=== PATIENT | female | born 1970 | race Caucasian/White ===

== ENCOUNTER → 2017-03-31 | Outpatient (REF) | payer BC ==
[~2017-03-31] MED LIST: DIBU0.5O TOP; NAPR250T2 PO; PERC5TAB6 PO; ZOLO50TA PO
[2017-03-31 17:59] LABS: ESTRADIOL 176.3 PG/ML; FOLLICLE STIMULATING HORMONE 7.4 mIU/mL; LUTEINIZING HORMONE 10.2 mIU/mL; PROGESTERONE 0.2 NG/ML
[2017-03-31 18:03] LABS: MEAN CORPUSCULAR HEMOGLOBIN 31.4 pg (27.0-33.0); MEAN CORPUSCULAR HGB CONC 33.7 g/dl (32.0-36.5); RED CELL DISTRIBUTION WIDTH 12.8 % (11.5-14.5); WHITE BLOOD COUNT 6.7 K/mm3 (4.0-10.0)
== END ==
LOC: M SFHCCLAY 10:35
PROVIDERS: ATTEND Family Medicine
DX: N92.1 Excessive and frequent menstruation with irregular cycle (principal)

== ENCOUNTER → 2017-09-29 | Outpatient (CLI) | payer BC ==
[~2017-09-29] MED LIST changes: -NAPR250T2 PO; +NAPR250T4 PO; +PERC5TAB12 PO; -PERC5TAB6 PO
[2017-09-29 15:53] LABS: BASO # 0.1 10^3/uL (0.0-0.2); BASO % 0.8 % (0.0-1.0); EOS # 0.1 10^3/uL (0.0-0.50); EOS % 1.1 % (0.0-3.0); IMMATURE GRANULOCYTE % 0.2 % (0-0); LYMPH # 2.8 10^3/uL (1.5-4.5); LYMPH % 30.1 % (24.0-44.0); MEAN CORPUSCULAR HEMOGLOBIN 30.8 pg (27.0-33.0); MEAN CORPUSCULAR HGB CONC 34.3 g/dl (32.0-36.5); MEAN CORPUSCULAR VOLUME 90.1 fl (80.0-96.0); MONO # 0.6 10^3/uL (0.0-0.8); MONO % 6.2 % (0.0-5.0); NEUTROPHILS # 5.7 10^3/uL (1.8-7.7); NEUTROPHILS % 61.6 % (36.0-66.0); PLATELET COUNT, AUTOMATED 394 10^3/uL (150-450); RED CELL DISTRIBUTION WIDTH 12.8 % (11.5-14.5); WHITE BLOOD COUNT 9.3 10^3/uL (4.0-10.0)
[2017-09-29 16:05] LABS: URIC ACID 2.3 MG/DL (2.6-6.0)
[2017-09-29 16:31] LABS: ERYTHROCYTE SEDIMENTATION RATE 8 mm/hr (0-20)
[2017-10-02 00:06] LABS: Lyme Disease IgG/IgM Antibodie <0.91 ISR (0.00-0.90); Lyme Disease IgM Ab Quantitati <0.80 index (0.00-0.79)
== END ==
LOC: M LABDRAW1 14:19
PROVIDERS: ATTEND Physician Assistant Surgical
DX: M79.645 Pain in left finger(s) (principal)

== ENCOUNTER 2017-12-23 06:53 | Day surgery (SDC) | payer BC ==
[2017-12-23] MEDS ORDERED: LIDOCAINE 1% MDV 20ML VIAL SQ (07:00)
[2017-12-23] MEDS: LR 1,000 ML IV (07:29)
[2017-12-23] MEDS ORDERED: ROCURONIUM BROMIDE 50 MG/5 ML VIAL As Ordered (08:06)
[2017-12-23] MEDS ORDERED: LIDOCAINE 2% INJ 100 MG/5 ML SDV (FOR ANES.) As Ordered (08:06)
[2017-12-23] MEDS ORDERED: dexameTHASONE 4 MG/ML 1ML VIAL (J1100) As Ordered (08:06)
[2017-12-23] MEDS ORDERED: ONDANSETRON 4MG/2ML VIAL (J2405) As Ordered (08:06)
[2017-12-23] MEDS ORDERED: PROPOFOL 200 MG/20 ML VIAL As Ordered ×2 (08:06→09:38)
[2017-12-23] MEDS ORDERED: fentaNYL 100 MCG/2 ML INJECTION (J3010) As Ordered ×2 (08:07→10:11)
[2017-12-23] MEDS ORDERED: MIDAZOLAM INJ 2 MG/2 ML VIAL (J2250) As Ordered (08:08)
[2017-12-23] MEDS ORDERED: ePHEDrine INJ 50 MG/ML VIAL As Ordered (09:22)
[2017-12-23] MEDS ORDERED: HYDROmorphone HCL 2 MG/ML 1ML VIAL (J1170) As Ordered (09:30)
[2017-12-23] MEDS: BUPIVACAINE HCL 0.5% 30 ML VIAL As Ordered (09:55)
[2017-12-23] MEDS: fentaNYL 100 MCG/2 ML INJECTION (J3010) IV ×4 (10:18→10:35)
[2017-12-23] MEDS ORDERED: LR 1,000 ML IV ×2 (10:30)
[2017-12-23] MEDS ORDERED: ONDANSETRON 4MG/2ML VIAL (J2405) IV (10:30)
[2017-12-23] MEDS ORDERED: traMADol 50 MG TAB PO (10:30)
[2017-12-23] MEDS: HYDROmorphone HCL 1 MG/ML SYRINGE (J1170) IV ×3 (10:41→10:51)
[2017-12-23] MEDS: PERCOCET 5MG/325MG TAB PO (11:00)
[2017-12-23] MEDS ORDERED: ACETAMINOPHEN 500 MG TAB PO (14:00)
== END 2017-12-23 12:00 | disposition home or self-care (01) ==
LOC: M SDC 06:53
DX: M20.21 Hallux rigidus, right foot (principal); F41.9 Anxiety disorder, unspecified; F17.210 Nicotine dependence, cigarettes, uncomplicated
CPT/HCPCS: 28291

== ENCOUNTER → 2018-02-09 | Outpatient (REF) | payer BC ==
[2018-02-09 15:48] LABS: C REACTIVE PROTEIN QUANTITATIV < 0.30 MG/DL (0.00-0.30)
[2018-02-09 15:55] LABS: ERYTHROCYTE SEDIMENTATION RATE 9 mm/hr (0-30)
[2018-02-09 15:57] LABS: BASO % 0.4 % (0.0-1.0); EOS # 0.1 10^3/uL (0.0-0.50); EOS % 1.5 % (0.0-3.0); HEMATOCRIT 40.4 % (36.0-47.0); HEMOGLOBIN 13.5 g/dl (12.0-16.0); IMMATURE GRANULOCYTE % 0.3 % (0-3.0); LYMPH # 2.3 10^3/uL (1.5-4.5); LYMPH % 31.6 % (24.0-44.0); MEAN CORPUSCULAR HEMOGLOBIN 29.3 pg (27.0-33.0); MEAN CORPUSCULAR HGB CONC 33.4 g/dl (32.0-36.5); MEAN CORPUSCULAR VOLUME 87.8 fl (80.0-96.0); MONO # 0.5 10^3/uL (0.0-0.8); MONO % 6.8 % (0.0-5.0); NEUTROPHILS # 4.3 10^3/uL (1.8-7.7); NEUTROPHILS % 59.4 % (36.0-66.0); PLATELET COUNT, AUTOMATED 430 10^3/uL (150-450); RED CELL DISTRIBUTION WIDTH 12.9 % (11.5-14.5); WHITE BLOOD COUNT 7.2 10^3/uL (4.0-10.0)
== END ==
LOC: M LABDRAW1 14:16
DX: Z47.89 Encounter for other orthopedic aftercare (principal)
CPT/HCPCS: 86140

== ENCOUNTER → 2018-05-16 | Outpatient (REF) | payer BC ==
[2018-05-16 11:15] LABS: ALBUMIN 3.5 GM/DL (3.2-5.2); ALBUMIN/GLOBULIN RATIO 0.97 (1.00-1.93); ALKALINE PHOSPHATASE 66 U/L (45-117); ALT/SGPT 23 U/L (12-78); ANION GAP 8 MEQ/L (8-16); AST/SGOT 16 U/L (7-37); BILIRUBIN,TOTAL 0.2 MG/DL (0.2-1.0); BLOOD UREA NITROGEN 12 MG/DL (7-18); CALCIUM LEVEL 8.7 MG/DL (8.5-10.1); CARBON DIOXIDE LEVEL 26 MEQ/L (21-32); CHLORIDE LEVEL 108 MEQ/L (98-107); CHOLESTEROL LEVEL 210 MG/DL (<200); CHOLESTEROL RISK RATIO 3.962 (<5); GLOMERULAR FILTRATION RATE > 60.0 (>51); GLUCOSE, FASTING 100 MG/DL (70-100); HDL CHOLESTEROL 53 MG/DL (>40); LDL CHOLESTEROL 140.8 MG/DL (<100); NON-HDL-C 157 MG/DL; POTASSIUM SERUM 4.7 MEQ/L (3.5-5.1); SODIUM LEVEL 142 MEQ/L (136-145); TOTAL PROTEIN 7.1 GM/DL (6.4-8.2); TRIGLYCERIDES LEVEL 81 MG/DL (<150)
== END ==
LOC: M SFHCCLAY 07:59
DX: E78.2 Mixed hyperlipidemia (principal)

== ENCOUNTER → 2018-10-27 | Outpatient (REF) | payer BC | LOC: M SFHCCLAY 11:20 | PROVIDERS: ATTEND Family Medicine | DX: L81.4 Other melanin hyperpigmentation (principal) ==

== ENCOUNTER → 2019-02-08 | Outpatient (CLI) | payer BC ==
--- NOTE | 2019-02-08 16:11 | REP ---
Clinical: Nephrolithiasis. Technique: Two supine views of the abdomen and pelvis. Findings: Evaluation of the urinary tract system is limited due to overlying bowel gas. No obvious urinary tract calcifications are appreciated. Phleboliths noted in the pelvis. Bowel gas pattern is nonspecific. The skeletal structures demonstrate age-related changes. Impression: Limited evaluation of the urinary tract system. No obvious nephroureterolithiasis appreciated. Electronically Signed by Ryan Gomez MD 02/08/2019 04:02 P
[2019-02-08 19:16] LABS: HEMATOCRIT 38.3 % (36.0-47.0); HEMOGLOBIN 12.5 g/dl (12.0-15.5); MEAN CORPUSCULAR HEMOGLOBIN 29.3 pg (27.0-33.0); MEAN CORPUSCULAR HGB CONC 32.6 g/dl (32.0-36.5); MEAN CORPUSCULAR VOLUME 89.7 fl (80.0-96.0); PLATELET COUNT, AUTOMATED 362 10^3/uL (150-450); RED BLOOD COUNT 4.27 10^6/uL (4.00-5.40); WHITE BLOOD COUNT 8.1 10^3/uL (4.0-10.0)
[2019-02-08 19:26] LABS: INR 0.98; PROTHROMBIN TIME 13.1 SECONDS (12.1-14.4)
[2019-02-08 19:45] LABS: BLOOD UREA NITROGEN 11 MG/DL (7-18); CALCIUM LEVEL 8.6 MG/DL (8.5-10.1); CARBON DIOXIDE LEVEL 27 MEQ/L (21-32); CHLORIDE LEVEL 104 MEQ/L (98-107); GLOMERULAR FILTRATION RATE > 60.0 (>51); GLUCOSE, FASTING 81 MG/DL (70-100); POTASSIUM SERUM 4.3 MEQ/L (3.5-5.1); SODIUM LEVEL 137 MEQ/L (136-145)
== END ==
LOC: M SMT 15:49
PROVIDERS: ATTEND Nurse Practitioner Family
DX: Z01.818 Encounter for other preprocedural examination (principal); N20.0 Calculus of kidney

== ENCOUNTER 2019-02-09 09:26 | Day surgery (SDC) | payer BC ==
[~2019-02-09] VITALS: Ht 165.1 cm; Wt 79.8 kg
[2019-02-09] MEDS ORDERED: MIDAZOLAM INJ 2 MG/2 ML VIAL (J2250) As Ordered ONE (10:18)
[2019-02-09] MEDS ORDERED: fentaNYL 100 MCG/2 ML INJECTION (J3010) As Ordered ONE (10:18)
[2019-02-09] MEDS ORDERED: LIDOCAINE 2% INJ 100 MG/5 ML SDV (FOR ANES.) As Ordered ONE (10:19)
[2019-02-09] MEDS ORDERED: PROPOFOL 200 MG/20 ML VIAL As Ordered ONE ×2 (10:19→11:26)
[2019-02-09] MEDS ORDERED: LR 1,000 ML IV ONE ×2 (11:00)
[2019-02-09] MEDS ORDERED: dexameTHASONE 4 MG/ML 1ML VIAL (J1100) As Ordered ONE (11:23)
[2019-02-09] MEDS ORDERED: ONDANSETRON 4MG/2ML VIAL (J2405) As Ordered ONE (11:23)
--- NOTE | 2019-02-09 12:03 | REP ---
KUB ONE VIEW: HISTORY: Kidney stone. COMPARISON: 02/08/2019. A small amount of air is present in small and large intestine. There are no air fluid levels or dilated loops of intestine. There is no pneumoperitoneum. A 10 mm calcification is present overlying the medial left kidney. This may represent calcification in the left kidney or left renal collecting system. Phleboliths are present in the pelvis. A bone island is present in the left iliac bone. IMPRESSION: 1. Nonspecific bowel gas. 2. There is a 10 mm calcification overlying the medial left kidney. This may represent calcification in the kidney or renal collecting system. Electronically Signed by Jermain Ocasio MD 02/09/2019 12:24 P
[2019-02-09 12:25] VITALS: BP 121/67
--- NOTE | 2019-02-09 22:56 | RO ---
DATE OF PROCEDURE: 02/09/2019 PREOPERATIVE DIAGNOSIS: 7 mm left ureteropelvic junction stone. POSTOPERATIVE DIAGNOSIS: 7 mm left ureteropelvic junction stone. PROCEDURE: Left extracorporeal shock wave lithotripsy. SURGEON: Dr. Rebekah Savage WILDLAND FIRE OPERATIONS SPECIALIST: ANESTHESIA: Monitored anesthesia care (MAC). MEDICATIONS: Ancef 2 grams preoperatively. COMPLICATIONS: None. INDICATIONS FOR PROCEDURE: The patient is a 49-year-old female who had a CT scan done 02/06/2019 with a 7 mm left ureteropelvic junction stone causing mild left hydronephrosis and also some punctate nonobstructing stones in the left kidney. She was discharged from the emergency room and came into our office where she was scheduled for an extracorporeal shock wave lithotripsy (ESWL). All different options, alternatives, risks, and benefits were discussed and informed consent was obtained in both verbal and written form. DESCRIPTION OF PROCEDURE: The patient was brought into the operating room and placed supine on the padded operating room table. Preoperative antibiotics were given along with anesthesia. She was prepped and draped in the usual fashion using both ultrasound and fluoroscopy; the stone was well visualized. She then received a total of 3000 shock waves with the power ranging from 1-20. She tolerated the procedure well and was returned to the recovery room in stable condition.
== END 2019-02-09 12:40 | disposition home or self-care (01) ==
LOC: M SDC 09:26
PROVIDERS: ATTEND Specialist
DX: N13.5 Crossing vessel and stricture of ureter without hydronephrosis (principal); F41.9 Anxiety disorder, unspecified; Z79.899 Other long term (current) drug therapy
CPT/HCPCS: 50590; 74018; J0690; J1100; J2250; J2405; J3010

== ENCOUNTER → 2019-03-08 | Outpatient (CLI) | payer BC ==
[2019-03-08 13:17] LABS: AMORPHOUS SEDIMENT SMALL (NEGATIVE); APPEARANCE, URINE CLEAR (CLEAR); BACTERIA, URINE AUTO NEGATIVE (NEGATIVE); BILIRUBIN, URINE AUTO NEGATIVE (NEGATIVE); BLOOD, URINE BLOOD 2+ (NEGATIVE); COLOR, URINE YELLOW (YELLOW); GLUCOSE, URINE (UA) AUTO NEGATIVE (NEGATIVE); KETONE, URINE AUTO TRACE mg/dL (NEGATIVE); LEUKOCYTE ESTERASE, URINE AUTO TRACE (NEGATIVE); MUCUS, URINE SMALL (NEGATIVE); NITRITE, URINE AUTO NEGATIVE (NEGATIVE); PROTEIN, URINE AUTO NEGATIVE (NEGATIVE); RBC, URINE AUTO 144 /HPF (0-3); SPECIFIC GRAVITY URINE AUTO 1.016 (1.002-1.035); SQUAMOUS EPITHELIAL CELL UR AU 1 /HPF (0-6); UROBILINOGEN, URINE AUTO 0.2 mg/dL (0.0-2.0); WBC, URINE AUTO 10 /HPF (0-3)
--- NOTE | 2019-03-08 14:09 | REP ---
KUB, ONE VIEW: HISTORY: Kidney stone. COMPARISON: 02/09/2019. Air is present in small and large intestine. There are no air fluid levels or dilated loops of intestine. There is no pneumoperitoneum. The 10 mm calcification noted overlying the medial aspect of the left kidney in the previous radiograph is not seen in the present radiograph. Phleboliths are present in the pelvis. A bone island is present in the left iliac bone. IMPRESSION: 1. Nonspecific bowel gas pattern. 2. The previously noted 10 mm calcification overlying the medial left kidney is not seen in the present radiograph. Electronically Signed by Jermain Ocasio MD 03/08/2019 02:14 P
== END ==
LOC: M SMT 11:30
PROVIDERS: ATTEND Nurse Practitioner Family
DX: N20.0 Calculus of kidney (principal)

== ENCOUNTER → 2020-04-01 | Outpatient (CLI) | payer BC ==
--- NOTE | 2020-04-02 00:56 | REP ---
Clinical: Palpable mass over left thigh. Technique: Neutral and frog lateral views of the left femur. Findings: Osseous structures, joint spaces, and surrounding soft tissues are relatively normal by radiographic evaluation. No obvious soft tissue mass lesion or underlying osseous abnormalities appreciated. No subcutaneous emphysema. No foreign body. Impression: 1. Normal radiographic evaluation of the left femur and thigh. 2. Consider a directed ultrasound examination if palpable mass continues to be of concern. Electronically Signed by Ryan Gomez MD 04/02/2020 12:48 A
== END ==
LOC: M CLY 14:31
PROVIDERS: ATTEND Family Medicine
DX: R22.42 Localized swelling, mass and lump, left lower limb (principal)

== ENCOUNTER → 2021-05-24 | Outpatient (CLI) | payer BC ==
[~2021-05-24] MED LIST changes: +FLOM0.4C39 PO; +NAPR-849 PO; -NAPR250T4 PO; +OXYC1TAB23 PO
== END ==
LOC: M LABSMTC 09:26
PROVIDERS: ATTEND Anesthesiology
DX: Z01.818 Encounter for other preprocedural examination (principal); Z11.52 Encounter for screening for COVID-19

== ENCOUNTER 2021-05-29 09:00 | Day surgery (SDC) | payer BC ==
[~2021-05-29] VITALS: Ht 165.1 cm; Wt 76.8 kg
[~2021-05-29 09:00] MED LIST changes: +LR 1,000 ML IV ONE; +ceFAZolin SOD 2 GM in IV 1 EA IV ONE
--- NOTE | 2021-05-29 09:31 | REP ---
INDICATION: KIDNEY STONE COMPARISON: 03/08/2019 TECHNIQUE: Supine view of the abdomen and pelvis. FINDINGS: 5 mm nonobstructing left renal calculus suggested. Further evaluation of the urinary tract system is limited due to overlying bowel gas. Calcifications in the pelvis are relatively stable and consistent with phleboliths. The bowel gas pattern is nonspecific. No organomegaly. No foreign body. Skeletal structures intact. IMPRESSION: 5 mm nonobstructing left renal calculus. Further evaluation of the urinary tract system is limited by overlying bowel gas. <Electronically signed by Ryan Gomez > 05/29/21 0919
[2021-05-29] MEDS ORDERED: MIDAZOLAM INJ 2MG/2ML VIAL (J2250 PER 1MG) As Ordered ONE (11:12)
[2021-05-29] MEDS ORDERED: fentaNYL 100 MCG/2 ML INJECTION (J3010) As Ordered ONE (11:14)
[2021-05-29] MEDS ORDERED: propofoL 500 MG/50 ML VIAL As Ordered ONE (11:15)
[2021-05-29] MEDS ORDERED: dexameTHASONE 4 MG/ML 1ML VIAL (J1100 PER 1MG) As Ordered ONE (11:51)
[2021-05-29] MEDS ORDERED: ONDANSETRON 4MG/2ML VIAL As Ordered ONE (11:51)
[2021-05-29] MEDS ORDERED: ePHEDrine SULFATE 25 MG/5 ML(5MG/ML) SYRINGE As Ordered ONE (12:03)
[2021-05-29] MEDS ORDERED: FLOM0.4C39 PO (12:06)
[2021-05-29] MEDS ORDERED: METOCLOPRAMIDE INJ 10MG/2ML VIAL (J2765 PER 1) IV PRN (12:45)
[2021-05-29] MEDS ORDERED: PERCOCET 5MG/325MG TAB PO PRN (12:45)
[2021-05-29] MEDS ORDERED: ONDANSETRON 4MG/2ML VIAL IV PRN (12:45)
[2021-05-29] MEDS ORDERED: MORPHINE 2 MG/ML 1ML VIAL (J2270) IV PRN (12:45)
[2021-05-29] MEDS ORDERED: LR 1,000 ML IV SCH (12:45)
[2021-05-29 13:25] VITALS: BP 123/70
--- NOTE | 2021-05-29 19:35 | RO ---
OPERATIVE NOTE DATE OF OPERATION: 05/29/2021 PREOPERATIVE DIAGNOSIS: Left kidney stone. POSTOPERATIVE DIAGNOSIS: Left kidney stone. PROCEDURES: Left extracorporeal shock wave lithotripsy. SURGEON: David Whitaker MD. SENIOR BENEFITS MANAGER: None. ANESTHESIA: Monitored Anesthesia Care (MAC). OPERATIVE INDICATIONS: This is a 51-year-old female who was found to have an approximately 7-8 mm left ureteropelvic junction stone. She was brought to the operating room today for treatment. DESCRIPTION OF PROCEDURE: The patient was brought to the operating room and MAC anesthesia was induced. Prophylactic antibiotics were infused. She was placed in the supine for preparation for left-sided extracorporeal shock wave lithotripsy. Shock waves were then delivered to the left-sided kidney stones ungated. Fluoroscopy was utilized to monitor stone position and fragmentation throughout the procedure. There were no arrhythmias. After 2500 shocks, the procedure was concluded. The stone did appear to fragment well. The patient was then awakened from anesthesia and transported to the recovery room in stable condition. ESTIMATED BLOOD LOSS: 0 mL. COMPLICATIONS: None. SPECIMEN: None. PLAN: The patient will follow up in the Urology Clinic in a few weeks with imaging prior to assess for residual stone burden. JACOB
--- NOTE | 2021-05-30 22:32 | ECGEPIP ---
[facility] Test Date: 2021-05-29 Pat Name: TIMI EDGAR Department: Room: - Gender: Female Obstetrics Gyn Physician: ollie : 1970 Requested By: FIONA Zhao Order Number: [id number] Reading MD: Nickolas Scott Measurements Intervals [place] Rate: 61 P: 67 FL: 168 QRS: 8 QRSD: 98 T: 32 QT: 444 QTc: 446 Interpretive Statements Normal sinus rhythm Delayed anterior R wave progression Nonspecific ST-T wave abnormalities, lead III Comparison tracing not on file Electronically Signed on 05-30-2021 22:32:20 EDT by Nickolas Scott
== END 2021-05-29 13:25 | disposition home or self-care (01) ==
LOC: M SDC 09:00
PROVIDERS: ATTEND Urology
DX: N20.0 Calculus of kidney (principal); F17.210 Nicotine dependence, cigarettes, uncomplicated; F41.9 Anxiety disorder, unspecified; K21.9 Gastro-esophageal reflux disease without esophagitis; R06.83 Snoring; Z79.899 Other long term (current) drug therapy; Z85.820 Personal history of malignant melanoma of skin; Z86.010 Personal history of colon polyps; Z88.5 Allergy status to narcotic agent; Z88.8 Allergy status to other drugs, medicaments and biological substances; Z98.51 Tubal ligation status
CPT/HCPCS: 50590; 74018; 93005; J0690; J1100; J2250; J2405; J3010

== ENCOUNTER → 2021-06-18 | Outpatient (CLI) | payer BC ==
[~2021-06-18] MED LIST changes: -LR 1,000 ML IV ONE; -ceFAZolin SOD 2 GM in IV 1 EA IV ONE
--- NOTE | 2021-06-18 14:13 | REP ---
INDICATION: CALCULUS OF KIDNEY. COMPARISON: 05/29/2021 FINDINGS: KUB shows the intestinal gas pattern to be nonspecific. The organ silhouettes insofar as delineated are unremarkable. There is no evidence of free intraperitoneal air. The left-sided calcifications seen previously are unchanged. There are no new abnormal calcifications identified. IMPRESSION: As above <Electronically signed by Pasquale Sanderson > 06/18/21 9400
== END ==
LOC: M RAD 11:48
PROVIDERS: ATTEND Urology
DX: N20.0 Calculus of kidney (principal)

== ENCOUNTER → 2021-06-20 | Outpatient (REF) | payer BC ==
[2021-06-20 15:06] LABS: APPEARANCE, URINE CLEAR (CLEAR); BACTERIA, URINE AUTO NEGATIVE (NEGATIVE); BILIRUBIN, URINE AUTO NEGATIVE (NEGATIVE); BLOOD, URINE BLOOD NEGATIVE (NEGATIVE); COLOR, URINE YELLOW (YELLOW); GLUCOSE, URINE (UA) AUTO NEGATIVE (NEGATIVE); KETONE, URINE AUTO NEGATIVE (NEGATIVE); LEUKOCYTE ESTERASE, URINE AUTO NEGATIVE (NEGATIVE); MUCUS, URINE SMALL (NEGATIVE); NITRITE, URINE AUTO NEGATIVE (NEGATIVE); PROTEIN, URINE AUTO NEGATIVE (NEGATIVE); RBC, URINE AUTO 0 /HPF (0-3); SPECIFIC GRAVITY URINE AUTO 1.009 (1.002-1.035); SQUAMOUS EPITHELIAL CELL UR AU 0 /HPF (0-6); UROBILINOGEN, URINE AUTO 0.2 mg/dL (0.0-2.0); WBC, URINE AUTO 2 /HPF (0-3)
== END ==
LOC: M SMT 14:08
PROVIDERS: ATTEND Nurse Practitioner Women's Health
DX: N20.0 Calculus of kidney (principal)

== ENCOUNTER 2021-06-26 09:22 | Day surgery (SDC) | payer BC ==
[~2021-06-26] VITALS: Ht 165.1 cm; Wt 75.5 kg
[~2021-06-26 09:22] MED LIST changes: +LR 1,000 ML IV ONE; +ceFAZolin SOD 2 GM in IV 1 EA IV ONE
[2021-06-26] MEDS ORDERED: MIDAZOLAM INJ 2MG/2ML VIAL (J2250 PER 1MG) As Ordered ONE (09:40)
[2021-06-26] MEDS ORDERED: fentaNYL 100 MCG/2 ML INJECTION (J3010) As Ordered ONE (09:41)
[2021-06-26] MEDS ORDERED: ONDANSETRON 4MG/2ML VIAL As Ordered ONE (10:22)
[2021-06-26] MEDS ORDERED: dexameTHASONE 4 MG/ML 1ML VIAL (J1100 PER 1MG) As Ordered ONE (10:22)
[2021-06-26] MEDS ORDERED: propofoL 200 MG/20 ML VIAL As Ordered ONE ×2 (10:22→10:23)
--- NOTE | 2021-06-26 10:36 | REP ---
INDICATION: KUB BEFORE SDC. COMPARISON: 06/18/2021 TECHNIQUE: KUB FINDINGS: The oval calcification adjacent to the left L2 transverse process is unchanged in position when compared with the study done 06/18/2021. There is a 2 x 1 cm sclerotic focus in the left iliac bone of uncertain significance. This is unchanged compared to previous study. Bowel gas pattern is normal. Angelica's lobe of the liver noted. Spina bifida occulta S1 level. IMPRESSION: No interval change in left sided calcification. Solitary sclerotic bony focus left iliac bone. <Electronically signed by Ezra Torres > 06/26/21 1034
[2021-06-26] MEDS ORDERED: FLOM0.4C39 PO (10:43)
--- NOTE | 2021-06-26 11:11 | RO ---
OPERATIVE NOTE DATE OF OPERATION: 06/26/2021 PREOPERATIVE DIAGNOSIS: Left ureteral stone. POSTOPERATIVE DIAGNOSIS: Left ureteral stone. PROCEDURE: Left extracorporeal shock wave lithotripsy. SURGEON: David Whitaker MD PERSONAL CARE ATTENDANT: None. ANESTHESIA: MAC. OPERATIVE INDICATIONS: This is a 51-year-old female who was found to have an approximately 8-9 mm proximal left ureteral stone on recent imaging. She underwent left extracorporeal shock wave lithotripsy approximately one month ago and on postoperative x-ray it appeared that the none of the stone had passed. It was recommended that she undergo left ureteroscopy to remove the remaining stones but she preferred to try extracorporeal shock wave lithotripsy again. DESCRIPTION OF PROCEDURE: The patient was brought to the operating room and MAC anesthesia was administered. Prophylactic antibiotics were infused. She was placed in the supine position in preparation for left-sided extracorporeal shock wave lithotripsy. Fluoroscopy was utilized to monitor stone position and fragmentation throughout the procedure. Shock waves were then delivered to the left-sided ureteral stone ungated. There were no arrhythmias. The stone did have more hazy appearance at the end of the procedure which could indicate good fragmentation. At the end of 2500 shocks the procedure was concluded. The patient was awakened from anesthesia and transported to the recovery room in stable condition. ESTIMATED BLOOD LOSS: 0 mL. COMPLICATIONS: None. SPECIMEN: None. PLAN: The patient will follow up in urology clinic in a few weeks with imaging prior to assess for residual stone burden. JACOB
[2021-06-26 11:15] VITALS: BP 113/67
== END 2021-06-26 11:25 | disposition home or self-care (01) ==
LOC: M SDC 09:22
PROVIDERS: ATTEND Urology
DX: N20.1 Calculus of ureter (principal); K21.9 Gastro-esophageal reflux disease without esophagitis; F41.9 Anxiety disorder, unspecified; Z85.820 Personal history of malignant melanoma of skin; Z86.010 Personal history of colon polyps; F17.210 Nicotine dependence, cigarettes, uncomplicated; Z88.5 Allergy status to narcotic agent; Z79.899 Other long term (current) drug therapy; Z98.51 Tubal ligation status; Z88.8 Allergy status to other drugs, medicaments and biological substances
CPT/HCPCS: 50590; 74018; J0690; J1100; J2250; J2405; J3010; U0002

== ENCOUNTER → 2021-09-03 | Outpatient (CLI) | payer BC ==
[~2021-09-03] MED LIST changes: -LR 1,000 ML IV ONE; -ceFAZolin SOD 2 GM in IV 1 EA IV ONE
== END ==
LOC: M LABSMTC 10:00
PROVIDERS: ATTEND Anesthesiology
DX: Z01.818 Encounter for other preprocedural examination (principal); Z11.52 Encounter for screening for COVID-19

== ENCOUNTER → 2021-09-03 | Outpatient (CLI) | payer BC ==
[2021-09-03 11:56] LABS: HEMATOCRIT 43.2 % (36.0-47.0); HEMOGLOBIN 14.2 g/dl (12.0-15.5); MEAN CORPUSCULAR HEMOGLOBIN 29.8 pg (27.0-33.0); MEAN CORPUSCULAR HGB CONC 32.9 g/dl (32.0-36.5); MEAN CORPUSCULAR VOLUME 90.8 fl (80.0-96.0); PLATELET COUNT, AUTOMATED 404 10^3/uL (150-450); RED BLOOD COUNT 4.76 10^6/uL (4.00-5.40); WHITE BLOOD COUNT 6.8 10^3/uL (4.0-10.0)
[2021-09-03 12:36] LABS: ALBUMIN 3.7 GM/DL (3.2-5.2); ALT/SGPT 24 U/L (12-78); BILIRUBIN,TOTAL 0.4 MG/DL (0.2-1.0); BLOOD UREA NITROGEN 9 MG/DL (7-18); CALCIUM LEVEL 9.5 MG/DL (8.5-10.1); CARBON DIOXIDE LEVEL 32 MEQ/L (21-32); CHLORIDE LEVEL 106 MEQ/L (98-107); CREATININE FOR GFR 0.79 MG/DL (0.55-1.30); GLOMERULAR FILTRATION RATE > 60.0 (>51); GLUCOSE, FASTING 89 MG/DL (70-100); POTASSIUM SERUM 4.2 MEQ/L (3.5-5.1); SODIUM LEVEL 140 MEQ/L (136-145); TOTAL PROTEIN 7.6 GM/DL (6.4-8.2)
--- NOTE | 2021-09-04 06:02 | REP ---
INDICATION: CALCULUS OF URETER-LABS FIRST COMPARISON: 06/26/2021 TECHNIQUE: Supine view of the abdomen and pelvis. FINDINGS: The previously identified proximal ureteral calculus is no longer identified at the same level and possibly now overlies the L5 transverse process. Correlation with continued pain and symptoms is recommended. A rounded calcification overlying the left sacral wing along with phleboliths in the left hemipelvis are unchanged in appearance. Bowel gas pattern is nonspecific. Hepatomegaly cannot be excluded. No foreign body. Skeletal structures intact. IMPRESSION: Previously noted left ureteral calcification may have migrated as described above. Correlation is required. <Electronically signed by Ryan Gomez > 09/04/21 0544
--- NOTE | 2021-09-04 06:03 | REP ---
INDICATION: CALCULUS OF URETER-LABS FIRST COMPARISON: None. TECHNIQUE: PA and lateral. FINDINGS: The mediastinum and cardiac silhouette are normal. The lung martin are clear and without acute consolidation, effusion, or pneumothorax. The skeletal structures are intact and normal. IMPRESSION: No acute cardiopulmonary process. <Electronically signed by Ryan Gomez > 09/04/21 0567
== END ==
LOC: M LAB 10:22
PROVIDERS: ATTEND Urology
DX: N20.0 Calculus of kidney (principal)

== ENCOUNTER 2021-09-08 10:04 | Day surgery (SDC) | payer BC ==
[~2021-09-08] VITALS: Ht 165.1 cm; Wt 78.0 kg
[~2021-09-08 10:04] MED LIST changes: +CIPROFLOXACIN 400 MG in IV 1 EA IV ONE; +LIDOCAINE 2% 100MG/5ML SDV (FOR ANES.) As Ordered ONE; +LR 1,000 ML IV ONE; +MIDAZOLAM INJ 2MG/2ML VIAL (J2250 PER 1MG) As Ordered ONE; +ONDANSETRON 4MG/2ML VIAL As Ordered ONE; +dexameTHASONE 4 MG/ML 1ML VIAL (J1100 PER 1MG) As Ordered ONE; +propofoL 200 MG/20 ML VIAL As Ordered ONE
--- OUTSIDE RECORDS SUMMARY | 2021-09-08 10:08 | CCD ---
Author Author [facility] Organization [facility] Address Unknown Phone Unavailable Care Team Providers Care Coal Equipment Operator Name Role Phone Roque Martin Unavailable PROBLEMS Type Condition ICD9-CM Code [id number] Code Onset Dates Condition S tatus W/U Status Risk SNOMED Code Notes Problem Melanocytic nevi of lower extremity or hip D22.70 Active confirmed 277214322 Problem Melanocytic nevi of trunk D22.5 Active confirmed 050707948 Problem Melanocytic nevi of unspecified upper limb, including shoulder D22.60 Active confirmed 274912293 Problem Seborrheic dermatitis L21.9 Active confirmed 38833878 Problem Tobacco use disorder Z72.0 Active confirmed 24062583 Problem Anxiety F41.9 Active confirmed 91873165 Problem Hot flashes, menopausal N95.1 Active confirmed 306395940 Problem Other seborrheic keratosis L82.1 Active confirmed 599439313 Problem Kidney stone on left side N20.0 Active confirmed 58249856 Problem Personal history of malignant melanoma of skin Z85 .820 Active confirmed 468915707705 Problem Menorrhagia with irregular cycle N92.1 Active conf irmed 187203351 Problem Hx of colonic polyps Z86.010 Active confirmed 797996061 Problem 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 71 Active confirmed 275083186 Problem Mixed hyperlipidemia E78.2 Active confirmed 981038155 ALLERGIES Allergen (clinical drug ingredient) Drug/Non Drug Allergy do cumented on EMR Reaction Allergy Type Onset Date Status varenicline Chantix([facility] Code:[address]-91) Headaches Drug Allergy Active Vicodin itching Drug Allergy Active ENCOUNTERS from 1968 to 2021-08-26 Encounter Location Date Provider Diagnosis [facility]rology [address] [phone] [place] [address] Aug, Roque Martin Left ureteral stone N20.1 IMMUNIZATIONS Vaccine Route Administration Date Status Influenza 6mo & up Fluzone Unknown Aug 25, 2016 Refus ed SOCIAL HISTORY Tobacco Use: Social History Observation Description Date Details (start date - stop date) Current Smoker Sex Assigned At : Social History Observation Description Sex Assigned At Unknown Education: Question Answer Notes Level of Education: Not Finished College Audit Question Answer Notes Total Score: 3 Interpretation: Alcohol Education Language: Question Answer Notes Languages spoken: Tamazight Cheondoism: Question Answer Notes Cheondoism 33 None Sexual Hx: Question Answer Notes Had sex in the last 12 months (vaginal, oral, or anal)? Yes Have you ever had an STD? No Prevention Strategies discussed: Other with Men only Use protection? No Drug and Alcohol Question Answer Notes Total Score: 0 Interpretation: No problems reported Alcohol Screening: Question Answer Notes Did you have a drink containing alcohol in the past year? Ye s Points 4 Interpretation Positive How often did you have six or more drinks on one occas ion in the past year? Less than monthly (1 point) How many drinks did you have on a typica l day when you were drinking in the past year? 3 or 4 (1 point) How often did you have a drink containing alcohol in t he past year? Two to four times a month (2 points) BMI Care Goal Follow-Up Question Answer Notes Above Normal BMI Follow-Up Giving encouragement to exercise Tobacco Use: Question Answer Notes Are you a: current smoker STARTED SMOKING 1982 Additional Findings: Tobacco User Moderate cigarette smoker (10-19 cigs/day) Smoking Cessation Information Given 03/28/2020 Patient counseled on the dangers of tobacco use and urged to quit: 03/28/2020 How many cigarettes a day do you smoke? 6-10 Are you interested in quitting? Not ready to quit Counseled the patient on smoking effects, education provided 03/28/2020 REASON FOR REFERRAL No Information VITAL SIGNS Weight 170 lbs Aug, Weight-kg 77.11 kg Aug, Height 65 1/2 in Aug, BMI 27.86 kg/m2 Aug, Heart Rate 80 /min Aug, Respiratory Rate 18 /min Aug, Temperature 97.6 degrees Fahrenheit Aug, Oximetry 98 Aug, Blood pressure systolic 128 mm Hg Aug, Blood pressure diastolic 70 mm Hg Aug, MEDICATIONS Medication SIG (Take, Route, Frequency, Duration) Notes Start Da te End Date Status Percocet 5-325 MG 1 tablet as needed Orally every 6 hrs prn Aug, Active Flomax 0.4 MG 1 capsule Orally Once a day for 30 day(s) May, Active Percocet 5-325 MG 1 tablet as needed Orally every 6 hrs, MDD 4 f or 7 day(s) May, Not-Taking Zoloft 50 MG 1 tablet Orally Once a day for 90 days Active Flomax 0.4 MG 1 capsule Orally Once a day for 30 day(s) Not-Taking Zofran 4 MG 1 tablet Orally every 8hr prn Aug, Active Naproxen 500 MG 1 tablet with food or milk as needed Orally every 12 hrs Active PROCEDURES No Information RESULTS No Results REASON FOR VISIT s/p left eswl MEDICAL (GENERAL) HISTORY Type Description Date Medical History Colon polyps (Dr Blanca Hagen-Leidy Estevezuse) Medical History Hx of melanoma Medical History Hx of diverticulitis Medical History Anxiety Medical History OA right great toe Medical History Hx of kidney stones Medical History Left ureteral stone Surgical History Tubal Ligation 1997 Surgical History Colonoscopy- Dr. Hagen 2007, 2009, 20 14 Surgical History Melanoma removed from right shoulder-Dr. Rangel 2005 Surgical History Bartholin's cyst removal-Dr Graham 05/2021 6 Surgical History Cartiva implant- right great toe- Dr. Anitra raines 12/2017 Surgical History LEFT ESWL (DR. FRANCOIS) 02/09/2019 Surgical History Colonoscopy- Dr Joshua Estevez 05/2021 Surgical History left ESWL 05/2021 Surgical History Second left ureteral stone ESWL Hospitalization History Child x 3 Goals Section No Information Health Concerns No Information MEDICAL EQUIPMENT No Information MENTAL STATUS No Information FUNCTIONAL STATUS No Information ASSESSMENTS Encounter Date Diagnosis Assessment Notes Treatment Notes Treatm ent Clinical Notes Aug, Left ureteral stone (ICD-10 - N20.1) PLAN OF TREATMENT Medication Medication Name Sig Start Date Stop Date Zofran 4 MG 1 tablet Orally every 8hr prn Aug, Percocet 5-325 MG 1 tablet as needed Orally every 6 hrs prn O , 2020 Treatment Notes Test Name Order Date [facility] Chest, 2 view (PA\Lat) 2021-08-15 Electrocardiogram (EKG) 2021-08-15 Abdomen, Flat Plate (KUB) PLZ or [facility] 2021-08-15 Comprehensive Metabolic Profile (CMP) 2021-08-15 CBC - Complete Blood Count 2021-08-15 URINE CULTURE 2021-08-15 Next Appt Details Left ureteroscopy Reason:Left ureteral s tone Provider Name:Roque Carbajal Veronica, 2021-09-15 2 10:45:00 AM, [address], , [place], [address], Follow Up:Left ureteroscopyLeft ureteral stone Insurance Providers Payer Name Payer Address Payer Phone Insured Name Patient Relati onship to Insured Coverage Start Date Coverage End Date BCBS [place] PPO [phone] [facility] [place] [address] TIMI EDGAR self
--- OUTSIDE RECORDS SUMMARY | 2021-09-08 10:08 | CCD ---
Author Author [facility] Organization [facility] Address Unknown Phone Unavailable Care Team Providers Care Dairy Feed Mixing Operator Name Role Phone Naun Mei Unavailable PROBLEMS Type Condition ICD9-CM Code [id number] Code Onset Dates Condition S tatus W/U Status Risk SNOMED Code Notes Problem Melanocytic nevi of lower extremity or hip D22.70 Active confirmed 742836049 Problem Melanocytic nevi of trunk D22.5 Active confirmed 190528146 Problem Melanocytic nevi of unspecified upper limb, including shoulder D22.60 Active confirmed 697960710 Problem Seborrheic dermatitis L21.9 Active confirmed 67491210 Problem Tobacco use disorder Z72.0 Active confirmed 96240934 Problem Anxiety F41.9 Active confirmed 31701362 Problem Hot flashes, menopausal N95.1 Active confirmed 900853492 Problem Other seborrheic keratosis L82.1 Active confirmed 048704034 Problem Kidney stone on left side N20.0 Active confirmed 80288601 Problem Personal history of malignant melanoma of skin Z85 .820 Active confirmed 196209431417 Problem Menorrhagia with irregular cycle N92.1 Active conf irmed 247613078 Problem Hx of colonic polyps Z86.010 Active confirmed 376236818 Problem 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 71 Active confirmed 661247522 Problem Mixed hyperlipidemia E78.2 Active confirmed 264773053 ALLERGIES Allergen (clinical drug ingredient) Drug/Non Drug Allergy do cumented on EMR Reaction Allergy Type Onset Date Status varenicline Chantix([facility] Code:[address]-32) Headaches Drug Allergy Active Vicodin itching Drug Allergy Active ENCOUNTERS from 1970 to 2021-06-17 Encounter Location Date Provider Diagnosis [facility] [place] [phone] [place] [address] Jun, Naun Sigifredo IMMUNIZATIONS Vaccine Route Administration Date Status Influenza [...] Education Language: Question Answer Notes Languages spoken: Maori Jainism: Question Answer Notes Jainism 33 None Sexual Hx: Question Answer Notes [...] REASON FOR REFERRAL No Information VITAL SIGNS No information MEDICATIONS Medication SIG (Take, Route, Frequency, Duration) Notes Start Da te End Date Status Flomax 0.4 MG 1 capsule Orally Once a day for 30 day(s) May, Active Flomax 0.4 MG 1 capsule Orally Once a day for 30 day(s) Active Percocet 5-325 MG 1 tablet as needed Orally every 6 hrs, MDD 4 f or 7 day(s) May, Active Zoloft 50 MG 1 tablet Orally Once a day for 90 days Active Naproxen 500 MG 1 tablet with food or milk as needed Orally every 12 hrs Active PROCEDURES No Information RESULTS No Results REASON FOR VISIT Refill - Zoloft MEDICAL (GENERAL) HISTORY Type Description Date Medical History Colon polyps (Dr Blanca Hagen-Vannessa Estevez) Medical History Hx of melanoma Medical History Hx of diverticulitis Medical History Anxiety Medical History OA right great toe Medical History Hx of kidney stones Surgical History Tubal Ligation 1997 Surgical History Colonoscopy- Dr. Hagen 2007, 2009, 20 14 Surgical History Melanoma removed from right shoulder-Dr. Rangel 2005 Surgical History Bartholin's cyst removal-Dr Graham 05/2021 6 Surgical History Cartiva implant- right great toe- Dr. Anitra raines 12/2017 Surgical History LEFT ESWL (DR. FRANCOIS) 02/09/2019 Hospitalization History Child x 3 Goals Section No Information Health Concerns No Information MEDICAL EQUIPMENT No Information MENTAL STATUS No Information FUNCTIONAL STATUS No Information ASSESSMENTS No Information PLAN OF TREATMENT Medication Medication Name Sig Start Date Stop Date Flomax 0.4 MG 1 capsule Orally Once a day for 30 day(s) May Zoloft 50 MG 1 tablet Orally Once a day for 90 days Percocet 5-325 MG 1 tablet as needed Orally every 6 hrs, M DD 4 for 7 day(s) May, Next Appt Details Provider Name:Alysa Alan Christopher, 08-0 6 08:30:00 AM, [address], , [place], [address], Insurance Providers Payer Name Payer Address Payer Phone Insured Name Patient Relati onship to Insured Coverage Start Date Coverage End Date [employer] PPO [phone] [facility] [employer] [facility] [place] [address] TIMI EDGAR self
--- OUTSIDE RECORDS SUMMARY | 2021-09-08 10:08 | CCD | Continuity of Care Document ---
Author Author [facility] Organization Unknown Address [address] [place] [address] Phone [phone] Care Team Providers Care Travel Registered Nurse Nicu Name Role Phone Naun MeiM [phone] Problems Description No Information Available Social History Type Date Description Comments Sex Unknown ETOH Use Occasionally consumes alcohol Tobacco Use Start: Unknown Patient is a current smoker, smo kes every day Allergies, Adverse Reactions, Alerts Description No Known Drug Allergies Medications Active Medications SIG Qnty Indications Ordering Provide r Date Medrol 4mg Tablets dose cassy, take as directed on sheet 1tabs Z47.89 Eduarda Kelsey MD 018 Sertraline HCL 10mg Tablets 1 by mouth every day Unknown Immunizations Description No Information Available Vital Signs Date Vital Result Comment 10/22/2017 9:17am Body Temperature 97.2 F Height 65.5 inches 5'5.50" Weight 165.00 lb BMI (Body Mass Index) 27.0 kg/m2 09/29/2017 1:28pm Body Temperature 97.6 F Height 65 inches 5'5" Weight 158.00 lb BMI (Body Mass Index) 26.3 kg/m2 Results Description No Information Available Procedures Date Code Description Status 06/12/2021 61655 Office/Outpatient New Low MDM 30 -44 Minutes Completed 06/12/2021 00934 X-Ray Hand Three Views Completed Medical Devices Description No Information Available Encounters Type Date Location Provider Dx Diagnosis Office Visit 06/12/2021 10:15a [place] Hilaria Segovia S62.645A Nondisp fx of proximal phalanx of left ring finger, init Assessments Date Code Description Provider 06/12/2021 S62.645A Nondisplaced fractur e of proximal phalanx of left ring finger, initial encounter for closed fracture Cheryl Segovia. Plan of Treatment 06/12/2021 - Hilaria Segovia* S62.645A Nondisplaced fracture of proximal phalanx of left ring finger, initial encounter for closed fracture* Follow up:* prn Functional Status Description No Information Available Mental Status Description No Information Available Referrals Description No Information Available
--- OUTSIDE RECORDS SUMMARY | 2021-09-08 10:08 | CCD ---
Author Author [facility] Organization [facility] Address Unknown Phone Unavailable Care Team Providers Care Paper Rewinder Name Role Phone Roque Martin Unavailable PROBLEMS Type Condition ICD9-CM Code [id number] Code Onset Dates Condition S tatus W/U Status Risk SNOMED Code Notes Problem Melanocytic nevi of lower extremity or hip D22.70 Active confirmed 779478464 Problem Melanocytic nevi of trunk D22.5 Active confirmed 815399053 Problem Melanocytic nevi of unspecified upper limb, including shoulder D22.60 Active confirmed 877129797 Problem Seborrheic dermatitis L21.9 Active confirmed 35573292 Problem Tobacco use disorder Z72.0 Active confirmed 46457000 Problem Anxiety F41.9 Active confirmed 06855320 Problem Hot flashes, menopausal N95.1 Active confirmed 373225625 Problem Other seborrheic keratosis L82.1 Active confirmed 444652257 Problem Kidney stone on left side N20.0 Active confirmed 16153924 Problem Personal history of malignant melanoma of skin Z85 .820 Active confirmed 875090450068 Problem Menorrhagia with irregular cycle N92.1 Active conf irmed 964281155 Problem Hx of colonic polyps Z86.010 Active confirmed 359774534 Problem 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 71 Active confirmed 304817085 Problem Mixed hyperlipidemia E78.2 Active confirmed 880864672 ALLERGIES Allergen (clinical drug ingredient) Drug/Non Drug Allergy do cumented on EMR Reaction Allergy Type Onset Date Status varenicline Chantix([facility] Code:[address]-84) Headaches Drug Allergy Active Vicodin itching Drug Allergy Active ENCOUNTERS from 1968 to 2021-07-17 Encounter Location Date Provider Diagnosis [facility] Urology [address] [phone] [place] [address] Jul, Roque Kristoferlazaro IMMUNIZATIONS Vaccine Route Administration Date Status Influenza [...] Education Language: Question Answer Notes Languages spoken: Slovak Judaism: Question Answer Notes Judaism 33 None Sexual Hx: Question Answer Notes [...] a day for 30 day(s) May, Active Naproxen 500 MG 1 tablet with food or milk as needed Orally every 12 hrs Active Percocet 5-325 MG 1 tablet as needed Orally every 6 hrs, MDD 4 f or 7 day(s) May, Active Flomax 0.4 MG 1 capsule Orally Once a day for 30 day(s) Not-Taking Zoloft 50 MG 1 tablet Orally Once a day for 90 days Active PROCEDURES No Information RESULTS No Results REASON FOR VISIT 08/15/2021 appt MEDICAL (GENERAL) HISTORY Type Description Date Medical [...] Estevez 05/2021 Surgical History left ESWL 05/2021 Hospitalization History Child x 3 Goals Section No Information Health Concerns No Information MEDICAL EQUIPMENT No Information MENTAL STATUS No Information FUNCTIONAL STATUS No Information ASSESSMENTS No Information PLAN OF TREATMENT Next Appt Details Provider Name:Roque Raven Martin, 2020-10-0 1 11:30:00 AM, [address], , [place], [address], Insurance Providers Payer Name Payer Address Payer Phone Insured Name Patient Relati onship to Insured Coverage Start Date Coverage End Date BCBS UTICELIO MCINTYRE PPO [phone] [facility] [place] [address] TIMI EDGAR self
--- OUTSIDE RECORDS SUMMARY | 2021-09-08 10:08 | CCD ---
Author Author [facility] Organization [facility] Address Unknown Phone Unavailable Care Team Providers Care Ordering Box Operator Name Role Phone David Whitaker Unavailable PROBLEMS Type Condition ICD9-CM Code [id number] Code Onset Dates Condition S tatus W/U Status Risk SNOMED Code Notes Problem Melanocytic nevi of lower extremity or hip D22.70 Active confirmed 842848953 Problem Melanocytic nevi of trunk D22.5 Active confirmed 470274249 Problem Melanocytic nevi of unspecified upper limb, including shoulder D22.60 Active confirmed 175393532 Problem Seborrheic dermatitis L21.9 Active confirmed 22054963 Problem Tobacco use disorder Z72.0 Active confirmed 99717116 Problem Anxiety F41.9 Active confirmed 15037740 Problem Hot flashes, menopausal N95.1 Active confirmed 571693908 Problem Other seborrheic keratosis L82.1 Active confirmed 507275193 Problem Kidney stone on left side N20.0 Active confirmed 78025892 Problem Personal history of malignant melanoma of skin Z85 .820 Active confirmed 719121383803 Problem Menorrhagia with irregular cycle N92.1 Active conf irmed 701960479 Problem Hx of colonic polyps Z86.010 Active confirmed 290649377 Problem 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 71 Active confirmed 342188503 Problem Mixed hyperlipidemia E78.2 Active confirmed 436038678 ALLERGIES Allergen (clinical drug ingredient) Drug/Non Drug Allergy do cumented on EMR Reaction Allergy Type Onset Date Status varenicline Chantix([facility] Code:[address]-98) Headaches Drug Allergy Active Vicodin itching Drug Allergy Active ENCOUNTERS from 1968 to 2021-06-20 Encounter Location Date Provider Diagnosis [facility] Urology [address] [phone] [place] [address] Jun, David Sherman IMMUNIZATIONS Vaccine Route Administration Date Status Influenza [...] Education Language: Question Answer Notes Languages spoken: Turkmen Scientologist: Question Answer Notes Scientologist 33 None Sexual Hx: Question Answer Notes [...] Information RESULTS No Results REASON FOR VISIT No Information MEDICAL (GENERAL) HISTORY Type Description Date Medical [...] PLAN OF TREATMENT Next Appt Details Provider Name:Alysa Alan Christopher, 9 08:00:00 AM, [address], , [place], [address], Insurance Providers Payer Name Payer Address Payer Phone Insured Name Patient Relati onship to Insured Coverage Start Date Coverage End Date BC[facility] P[facility] [phone] [facility] [employer] [address] [facility] [address] TIMI EDGAR self
--- OUTSIDE RECORDS SUMMARY | 2021-09-08 10:08 | CCD | Continuity of Care Document ---
Author Author [facility] Organization Unknown Address [address] [place] [address], [address] [address] Phone [phone] Care Team Providers Care Agriculture Internship Name Role Phone Naun Mei DO AUTM [phone] Problems Description No Information Available Social History [...] Available Procedures Date Code Description Status 06/12/2021 41906 X-Ray Hand Three Views Completed Medical Devices Description No Information Available Encounters Description No Information Available Assessments Date Code Description Provider 06/12/2021 S62.645A Nondisplaced fractur e of proximal phalanx of left ring finger, initial encounter for closed fracture Hilaria Segovia Plan of Treatment 06/12/2021 - Cheryl Segovia.* S62.648Z Nondisplaced fracture of proximal phalanx of left ring finger, initial encounter for closed fracture* Follow up:* prn Functional Status Description No Information Available Mental Status Description No Information Available Referrals Description No Information Available
--- OUTSIDE RECORDS SUMMARY | 2021-09-08 10:08 | CCD | Continuity of Care Document ---
Author Author Vilma RIVERA MD Organization Unknown Address [address] [place] [address] Phone [phone] Care Team Providers Care Fiberglass Fabricator Name Role Phone Naun Mei DO AUTM [phone] Problems Description No Information Available Social History Type Date Description Comments Sex Unknown ETOH Use Occasionally consumes alcohol Tobacco Use Start: Unknown Patient is a current smoker, smo kes every day Allergies and adverse reactions Description No Known Drug Allergies Medications Active Medications SIG Qnty Indications Ordering Provide r Date Medrol 4mg Tablets dose cassy, take as directed on sheet 1tabs Z47.89 Eduarda Rivera MD 018 Sertraline HCL 10mg Tablets 1 [...] Available Procedures Date Code Description Status 06/12/2021 54189 Office/Outpatient New Low MDM 30 -44 Minutes Completed 06/12/2021 70717 X-Ray Hand Three Views Completed Medical Devices Description No Information Available Encounters Type Date Location Provider Dx Diagnosis Office Visit 06/12/2021 10:15a [place], PAbelAAbel S62.645A Nondisp fx of proximal phalanx of left ring finger, init Assessments Date Code Description Provider 06/12/2021 S62.645A Nondisplaced fractur e of proximal phalanx of left ring finger, initial encounter for closed fracture Cheryl Segovia. Plan of Treatment 06/12/2021 - Cheryl Segovia.* S62.645A Nondisplaced fracture of proximal phalanx of left ring finger, initial encounter for closed fracture* Follow up:* prn Functional Status Description No Information Available Mental Status Description No Information Available Referrals Description No Information Available
--- OUTSIDE RECORDS SUMMARY | 2021-09-08 10:08 | CCD ---
Author Author [facility] Organization [facility] Address Unknown Phone Unavailable Care Team Providers Care Elevator Attendant Name Role Phone David Whitaker Unavailable PROBLEMS Type Condition ICD9-CM Code LLH69-CH Code Onset Dates Condition S tatus W/U Status Risk SNOMED Code Notes Problem Melanocytic nevi of lower extremity or hip D22.70 Active confirmed 375333324 Problem Melanocytic nevi of trunk D22.5 Active confirmed 808561121 Problem Melanocytic nevi of unspecified upper limb, including shoulder D22.60 Active confirmed 537009984 Problem Seborrheic dermatitis L21.9 Active confirmed 01806454 Problem Tobacco use disorder Z72.0 Active confirmed 13233823 Problem Anxiety F41.9 Active confirmed 39604302 Problem Hot flashes, menopausal N95.1 Active confirmed 800466619 Problem Other seborrheic keratosis L82.1 Active confirmed 744801700 Problem Kidney stone on left side N20.0 Active confirmed 13544541 Problem Personal history of malignant melanoma of skin Z85 .820 Active confirmed 897998070428 Problem Menorrhagia with irregular cycle N92.1 Active conf irmed 617691710 Problem Hx of colonic polyps Z86.010 Active confirmed 789738309 Problem 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 Code:[address]-59) Headaches Drug Allergy Active Vicodin itching Drug Allergy Active ENCOUNTERS from 1968 to 2021-06-20 Encounter Location Date Provider Diagnosis [facility] Urology [address] [phone] [place] [address] Jun, David Sherman IMMUNIZATIONS Vaccine Route Administration [...] Education Language: Question Answer Notes Languages spoken: Spanish Temple: Question Answer Notes Temple 33 None Sexual Hx: Question Answer Notes [...] Information RESULTS No Results REASON FOR VISIT recommendations MEDICAL (GENERAL) HISTORY Type Description Date Medical [...] Provider Name:Alysa Alan Christopher, 9 08:00:00 AM, [address], , [place], [address], Insurance Providers Payer Name Payer Address Payer Phone Insured Name Patient Relati onship to Insured Coverage Start Date Coverage End Date BCBS UTIFL MIGUELINA [address]PO [phone] [facility] [email or web address] [address] TIMI EDGAR self
--- OUTSIDE RECORDS SUMMARY | 2021-09-08 10:08 | CCD ---
Author Author [facility] Organization [facility] Address Unknown Phone Unavailable Care Team Providers Care Tube Balancer Name Role Phone Alysa Christopher Unavailable PROBLEMS Type Condition ICD9-CM Code [id number] Code Onset Dates Condition S tatus W/U Status Risk SNOMED Code Notes Problem Melanocytic nevi of lower extremity or hip D22.70 Active confirmed 048468346 Problem Melanocytic nevi of trunk D22.5 Active confirmed 151835748 Problem Melanocytic nevi of unspecified upper limb, including shoulder D22.60 Active confirmed 241259960 Problem Seborrheic dermatitis L21.9 Active confirmed 86705838 Problem Tobacco use disorder Z72.0 Active confirmed 35397255 Problem Anxiety F41.9 Active confirmed 18357300 Problem Hot flashes, menopausal N95.1 Active confirmed 128875159 Problem Other seborrheic keratosis L82.1 Active confirmed 750982832 Problem Kidney stone on left side N20.0 Active confirmed 87912745 Problem Personal history of malignant melanoma of skin Z85 .820 Active confirmed 539540639923 Problem Menorrhagia with irregular cycle N92.1 Active conf irmed 719032583 Problem Hx of colonic polyps Z86.010 Active confirmed 531537646 Problem 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 71 Active confirmed 432443403 Problem Mixed hyperlipidemia E78.2 Active confirmed 581797986 ALLERGIES Allergen (clinical drug ingredient) Drug/Non Drug Allergy do cumented on EMR Reaction Allergy Type Onset Date Status varenicline Chantix([facility] Code:[address]-78) Headaches Drug Allergy Active Vicodin itching Drug Allergy Active ENCOUNTERS from 1968 to 2021-06-24 Encounter Location Date Provider Diagnosis [facility] Urology [address] [phone] [place] [address] Jun, Alysa Christopher Kidney stone on left side N20.0 IMMUNIZATIONS Vaccine Route Administration Date Status Influenza [...] Education Language: Question Answer Notes Languages spoken: Portuguese Taoism: Question Answer Notes Taoism 33 None Sexual Hx: Question Answer Notes [...] FOR REFERRAL No Information VITAL SIGNS Weight 170.4 lbs Jun, Height 65 1/2 in Jun, BMI 27.92 kg/m2 Jun, Heart Rate 84 /min Jun, Respiratory Rate 18 /min Jun, Temperature 97.4 degrees Fahrenheit Jun, Oximetry 97 Jun, Blood pressure systolic 130 mm Hg Jun, Blood pressure diastolic 72 mm Hg Jun, MEDICATIONS Medication SIG (Take, Route, Frequency, Duration) [...] Information RESULTS No Results REASON FOR VISIT S/P LEFT ESWL w/ KUB prior MEDICAL (GENERAL) HISTORY Type Description Date Medical [...] Notes Treatment Notes Treatm ent Clinical Notes Jun, Kidney stone on left side (ICD-10 - N20.0) PLAN OF TREATMENT Future Test Test Name Order Date PLZ ABDOMEN 1 VIEW (KUB) [id number] URINE CULTURE [id number] UA URINALYSIS [id number] Next Appt Details Provider Name:Alysa Phillips Candi, 2021-07-0 9 08:00:00 AM, [address], , [place], [address], Insurance Providers Payer Name Payer Address Payer Phone Insured Name Patient Relati onship to Insured Coverage Start Date Coverage End Date BCBS ARIEL MCINTYRE [facility] [phone] [facility] [place] [address] TIMI EDGAR self
--- OUTSIDE RECORDS SUMMARY | 2021-09-08 10:10 | CCD ---
Author Author [facility] Organization [facility] Address Unknown Phone Unavailable Care Team Providers Care Welder/Fabricator Name Role Phone Recore, Alysa Cristela WHNP Unavailable Unavailable Recore, Alysa Cristela WHNP Unavailable Unavailable Recore, Alysa Cristela WHNP Unavailable Unavailable Recore, Alysa Cristela WHNP Unavailable Unavailable Recore, Alysa Cristela WHNP Unavailable Unavailable Recore, Alysa Cristela WHNP Unavailable Unavailable Recore, Alysa Cristela WHNP Unavailable Unavailable Recore, Alysa Cristela WHNP Unavailable Unavailable Recore, Alysa Cristela WHNP Unavailable Unavailable Recore, Alysa Cristela WHNP Unavailable Unavailable Recore, Alysa Cristela WHNP Unavailable Unavailable Recore, Alysa Cristela WHNP Unavailable Unavailable Recore, Alysa Cristela WHNP Unavailable Unavailable Recore, Alysa Cristela WHNP Unavailable Unavailable Recore, Alysa Cristela WHNP Unavailable Unavailable Recore, Alysa Cristela WHNP Unavailable Unavailable Recore, Alysa Cristela WHNP Unavailable Unavailable Recore, Alysa Cristela WHNP Unavailable Unavailable Recore, Laysa Cristela WHNP Unavailable Unavailable Recore, Alysa Cristela WHNP Unavailable Unavailable Recore, Alysa Cristela WHNP Unavailable Unavailable Recore, Alysa Cristela WHNP Unavailable Unavailable Recore, Alysa Cristela WHNP Unavailable Unavailable Recore, Alysa Cristela WHNP Unavailable Unavailable Recore, Alysa Cristela WHNP Unavailable Unavailable Recore, Alysa Cristela WHNP Unavailable Unavailable Recore, Alysa Cristela WHNP Unavailable Unavailable Recore, Alysa Cristela WHNP Unavailable Unavailable Recore, Alysa Cristela WHNP Unavailable Unavailable Recore, Alysa Cristela WHNP Unavailable Unavailable Recore, Alysa Cristela WHNP Unavailable Unavailable Recore, Alysa Cristela WHNP Unavailable Unavailable Recore, Alysa Cristela WHNP Unavailable Unavailable Recore, Alysa Cristela WHNP Unavailable Unavailable Recore, Alysa Cristela WHNP Unavailable Unavailable Recore, Alysa Cristela WHNP Unavailable Unavailable Recore, Alysa Cristela WHNP Unavailable Unavailable Recore, Alysa Cristela WHNP Unavailable Unavailable Recore, Alysa Cristela WHNP Unavailable Unavailable Recore, Alysa Cristela WHNP Unavailable Unavailable Recore, Alysa Cristela WHNP Unavailable Unavailable Recore, Alysa Cristela WHNP Unavailable Unavailable Recore, Alysa Cristela WHNP Unavailable Unavailable Recore, Alysa Cristela WHNP Unavailable Unavailable Recore, Alysa Cristela WHNP Unavailable Unavailable Recore, Alysa Cristela WHNP Unavailable Unavailable Recore, Alysa Cristela WHNP Unavailable Unavailable Recore, Alysa Cristela WHNP Unavailable Unavailable Recore, Alysa Cristela WHNP Unavailable Unavailable Recore, Alysa Cristela WHNP Unavailable Unavailable Recore, Alysa Cristela WHNP Unavailable Unavailable Recore, Alysa Cristela WHNP Unavailable Unavailable Recore, Alysa Cristela WHNP Unavailable Unavailable Recore, Alysa Cristela WHNP Unavailable Unavailable Recore, Alysa Cristela WHNP Unavailable Unavailable Recore, Alysa Cristela WHNP Unavailable Unavailable Recore, Alysa Cristela WHNP Unavailable Unavailable Recore, Alysa Cristela WHNP Unavailable Unavailable Recore, Alysa Cristela WHNP Unavailable Unavailable Recore, Alysa Cristela WHNP Unavailable Unavailable Recore, Alysa Cristela WHNP Unavailable Unavailable Recore, Alysa Cristela WHNP [facility] Unavailable Unavailable MCELHERAN, DENISE PA Unavailable Unavailable MCELHERAN, DENISE PA Unavailable Unavailable MCELHERAN, DENISE PA Unavailable Unavailable MCELHERAN, DENISE PA Unavailable Unavailable MCELHERAN, DENISE PA Unavailable Unavailable MCELHERAN, DENISE PA Unavailable Unavailable MCELHERAN, DENISE PA Unavailable Unavailable MCELHERAN, DENISE PA Unavailable Unavailable MCELHERAN, DENISE PA Unavailable Unavailable MCELHERAN, DENISE PA Unavailable Unavailable MCELHERAN, DENISE PA Unavailable Unavailable MCELHERAN, DENISE PA Unavailable Unavailable MCELHERAN, DENISE PA Unavailable Unavailable MCELHERAN, DENISE PA Unavailable Unavailable MCELHERAN, DENISE PA Unavailable Unavailable MCELHERAN, DENISE PA Unavailable Unavailable MCELHERAN, DENISE PA Unavailable Unavailable MCELHERAN, DENISE PA Unavailable Unavailable MCELHERAN, DENISE PA Unavailable Unavailable MCELHERAN, DENISE PA Unavailable Unavailable MCELHERAN, DENISE PA Unavailable Unavailable MCELHERAN, DENISE PA Unavailable Unavailable MCELHERAN, DENISE PA Unavailable Unavailable MCELHERAN, DENISE PA Unavailable Unavailable MCELHERAN, DENISE PA Unavailable Unavailable MCELHERAN, DENISE PA Unavailable Unavailable MCELHERAN, DENISE PA Unavailable Unavailable MCELHERAN, DENISE PA Unavailable Unavailable MCELHERAN, DENISE PA Unavailable Unavailable LEONIDES (MARILYN), Douglas WELCH MD Unavailable Unavailab le LEONIDES (MARILYN), Douglas WELCH MD Unavailable Unavailab le LEONIDES (MARILYN), Douglas WELCH MD Unavailable Unavailab le LEONIDES (MARILYN), Douglas WELCH MD Unavailable Unavailab le LEONIDES (MARILYN), Douglas WELCH MD Unavailable Unavailab le LEONIDES (MARILYN), Douglas WELCH MD Unavailable Unavailab le LEONIDES (MARILYN), Douglas WELCH MD Unavailable Unavailab le LEONIDES (MARILYN), Douglas WELCH MD Unavailable Unavailab le LEONIDES (MARILYN), Douglas WELCH MD Unavailable Unavailab le LEONIDES (MARILYN), Douglas WELCH MD Unavailable Unavailab le LEONIDES (MARILYN), Douglas WELCH MD Unavailable Unavailab le LEONIDES (MARILYN), Douglas WELCH MD Unavailable Unavailab le LEONIDES (MARILYN), Douglas WELCH MD Unavailable Unavailab le LEONIDES (MARILYN), Douglas WELCH MD Unavailable Unavailab le LEONIDES (MARILYN), Douglas WELCH MD Unavailable Unavailab le LEONIDES (MARILYN), Douglas WELCH MD Unavailable Unavailab le LEONIDES (MARILYN), Douglas WELCH MD Unavailable Unavailab le LEONIDES (MARILYN), Douglas WELCH MD Unavailable Unavailab le LEONIDES (MARILYN), Douglas WELCH MD Unavailable Unavailab le LEONIDES (MARILYN), Douglas WELCH MD Unavailable Unavailab le LEONIDES (MARILYN), Douglas WELCH MD Unavailable Unavailab le LEONIDES (MARILYN), Douglas WELCH MD Unavailable Unavailab le LEONIDES (MARILYN), Douglas WELCH MD Unavailable Unavailab le LEONIDES (MARILYN), Douglas WELCH MD Unavailable Unavailab le LEONIDES (MARILYN), Douglas WELCH MD Unavailable Unavailab le LEONIDES (MARILYN), Douglas WELCH MD Unavailable Unavailab le LEONIDES (MARILYN), Douglas WELCH MD Unavailable Unavailab le LEONIDES (MARILYN), Douglas WELCH MD Unavailable Unavailab le LEONIDES (MARILYN), Douglas WELCH MD Unavailable Unavailab le LEONIDES (MARILYN), Douglas WELCH MD Unavailable Unavailab le LEONIDES (MARILYN), Douglas WELCH MD Unavailable Unavailab le LEONIDES (MARILYN), Douglas WELCH MD Unavailable Unavailab le LEONIDES (MARILYN), Douglas WELCH MD Unavailable Unavailab le LEONIDES (MARILYN), Douglas WELCH MD Unavailable Unavailab le LEONIDES (MARILYN), Douglas WELCH MD Unavailable Unavailab le LEONIDES (MARILYN), Douglas WELCH MD Unavailable Unavailab le LEONIDES (MARILYN), Douglas WELCH MD Unavailable Unavailab le LEONIDES (MARILYN), Douglas WELCH MD Unavailable Unavailab le LEONIDES (MARILYN), Duoglas WELCH MD Unavailable Unavailab le LEONIDES (MARILYN), Douglas WELCH MD Unavailable Unavailab le LEONIDES (MARILYN), Douglas WELCH MD Unavailable Unavailab le LEONIDES (MARILYN), Douglas WELCH MD Unavailable Unavailab le LEONIDES (MARILYN), Douglas WELCH MD Unavailable Unavailab le LEONIDES (MARILYN), Douglas WELCH MD Unavailable Unavailab le LEONIDES (MARILYN), Douglas WELCH MD Unavailable Unavailab le LEONIDES (MARILYN), Douglas WELCH MD Unavailable Unavailab le LEONIDES (MARILYN), Douglas WELCH MD Unavailable Unavailab le LEONIDES (MARILYN), Douglas WELCH MD Unavailable Unavailab le LEONIDES (MARILYN), Douglas WELCH MD Unavailable Unavailab le LEONIDES (MARILYN), Douglas WELCH MD Unavailable Unavailab le LEONIDES (MARILYN), Douglas WELCH MD Unavailable Unavailab le LEONIDES (MARILYN), Douglas WELCH MD Unavailable Unavailab le LEONIDES (MARILYN), Douglas WELCH MD Unavailable Unavailab le LEONIDES (MARILYN), Douglas WELCH MD Unavailable Unavailab le LEONIDES (MARILYN), Douglas WELCH MD Unavailable Unavailab le LEONIDES (MARILYN), Douglas WELCH MD Unavailable Unavailab le LEONIDES (MARILYN), Douglas WELCH MD Unavailable Unavailab le LEONIDES (MARILYN), Douglas WELCH MD Unavailable Unavailab le LEONIDES (MARILYN), Douglas WELCH MD Unavailable Unavailab le LEONIDES (MARILYN), Douglas WELCH MD Unavailable Unavailab le LEONIDES (MARILYN), Douglas WELCH MD Unavailable Unavailab le LEONIDES (MARILYN), Douglas WELCH MD Unavailable Unavailab le LEONIDES (MARILYN), Douglas WELCH MD Unavailable Unavailab le LEONIDES (MARILYN), Douglas WELCH MD Unavailable Unavailab le LEONIDES (MARILYN), Douglas WELCH MD Unavailable Unavailab le LEONIDES (MARILYN), Douglas WELCH MD Unavailable Unavailab le LEONIDES (MARILYN), Douglas WELCH MD Unavailable Unavailab le LEONIDES (MARILYN), Douglas WELCH MD Unavailable Unavailab le LEONIDES (MARILYN), Douglas WELCH MD Unavailable Unavailab le LEONIDES (MARILYN), Douglas WELCH MD Unavailable Unavailab le LEONIDES (MARILYN), Douglas WELCH MD Unavailable Unavailab le LEONIDES (MARILYN), Douglas WELCH MD Unavailable Unavailab le LEONIDES (MARILYN), Douglas WELCH MD Unavailable Unavailab le LEONIDES (MARILYN), Douglas WELCH MD Unavailable Unavailab le LEONIDES (MARILYN), Douglas WELCH MD Unavailable Unavailab le LEONIDES (MARILYN), Douglas WELCH MD Unavailable Unavailab le LEONIDES (MARILYN), Douglas WELCH MD Unavailable Unavailab le LEONIDES (MARILYN), Douglas WELCH MD Unavailable Unavailab le LEONIDES (MARILYN), Duoglas WELCH MD Unavailable Unavailab le LEONIDES (MARILYN), Duoglas WELCH MD Unavailable Unavailab le LEONIDES (MARILYN), Douglas WELCH MD Unavailable Unavailab le LEONIDES (MARILYN), Douglas WELCH MD Unavailable Unavailab le LEONIDES (MARILYN), Douglas WELCH MD Unavailable Unavailab le LEONIDES (MARILYN), Douglas WELCH MD Unavailable Unavailab le LEONIDES (MARILYN), Douglas WELCH MD Unavailable Unavailab le LEONIDES (MARILYN), Douglas WELCH MD Unavailable Unavailab le LEONIDES (MARILYN), Douglas WELCH MD Unavailable Unavailab le SYMENOW, G CHRISTOPHER PA Unavailable Unavailable SYMENOW, G CHRISTOPHER PA Unavailable Unavailable SYMENOW, G CHRISTOPHER PA Unavailable Unavailable SYMENOW, G CHRISTOPHER PA Unavailable Unavailable SYMENOW, G CHRISTOPHER PA Unavailable Unavailable SYMENOW, G CHRISTOPHER PA Unavailable Unavailable SYMENOW, G CHRISTOPHER PA Unavailable Unavailable SYMENOW, G CHRISTOPHER PA Unavailable Unavailable SYMENOW, G CHRISTOPHER PA Unavailable Unavailable SYMENOW, G CHRISTOPHER PA Unavailable Unavailable SYMENOW, G CHRISTOPHER PA Unavailable Unavailable SYMENOW, G CHRISTOPHER PA Unavailable Unavailable SYMENOW, G CHRISTOPHER PA Unavailable Unavailable SYMENOW, G CHRISTOPHER PA Unavailable Unavailable SYMENOW, G CHRISTOPHER PA Unavailable Unavailable SYMENOW, G CHRISTOPHER PA Unavailable Unavailable HUIZENGA, Roya DOSHI DO Unavailable Unavailable HUIZENGA, Roya DOSHI DO Unavailable Unavailable HUIZENGA, Roya DOSHI DO Unavailable Unavailable HUIZENGA, Roya DOSHI DO Unavailable Unavailable HUIZENGA, Roya DOSHI DO Unavailable Unavailable HUIZENGA, Roya DOSHI DO Unavailable Unavailable HUIZENGA, Roya DOSHI DO Unavailable Unavailable HUIZENGA, Roya DOSHI DO Unavailable Unavailable HUIZENGA, Roya DOSHI DO Unavailable Unavailable HUIZENGA, Roya DOSHI DO Unavailable Unavailable HUIZENGA, Roya DOSHI DO Unavailable Unavailable HUIZENGA, Roya DOSHI DO Unavailable Unavailable HUIZENGA, Roya DOSHI DO Unavailable Unavailable HUIZENGA, Roya DOSHI DO Unavailable Unavailable HUIZENGA, Roya DOSHI DO Unavailable Unavailable HUIZENGA, Roya DOSHI DO Unavailable Unavailable HUIZENGA, Roya DOSHI DO Unavailable Unavailable HUIZENGA, Roya DOSHI DO Unavailable Unavailable HUIZENGA, Roya DOSHI DO Unavailable Unavailable HUIZENGA, Roya DOSHI DO Unavailable Unavailable HUIZENGA, Roya DOSHI DO Unavailable Unavailable HUIZENGA, D TICO DO Unavailable Unavailable HUIZENGA, D TICO DO Unavailable Unavailable HUIZENGA, D TICO DO Unavailable Unavailable HUIZENGA, Roya DOSHI DO Unavailable Unavailable HUIZENGA, Roya DOSHI DO Unavailable Unavailable HUIZENGA, Roya DOSHI DO Unavailable Unavailable HUIZENGA, Roya DOSHI DO Unavailable Unavailable HUIZENGA, Roya DOSHI DO Unavailable Unavailable HUIZENGA, Roya DOSHI DO Unavailable Unavailable HUIZENGA, Roya DOSHI DO Unavailable Unavailable HUIZENGA, oRya DOSHI DO Unavailable Unavailable HUIZENGA, Roya DOSHI DO Unavailable Unavailable HUIZENGA, Roya DOSHI DO Unavailable Unavailable HUIZENGA, Roya DOSHI DO Unavailable Unavailable HUIZENGA, Roya DOSHI DO Unavailable Unavailable HUIZENGA, Roya DOSHI DO Unavailable Unavailable HUIZENGA, Roya DOSHI DO Unavailable Unavailable HUIZENGA, Roya DOSHI DO Unavailable Unavailable HUIZENGA, Roya DOSHI DO Unavailable Unavailable HUIZENGA, Roya DOSHI DO Unavailable Unavailable HUIZENGA, Roya DOSHI DO Unavailable Unavailable HUIZENGA, Roya DOSHI DO Unavailable Unavailable HUIZENGA, Roya DOSHI DO Unavailable Unavailable HUIZENGA, Roya DOSHI DO Unavailable Unavailable HUIZENGA, Roya DOSHI DO Unavailable Unavailable HUIZENGA, Roya DOSHI DO Unavailable Unavailable HUIZENGA, Roya DOSHI DO Unavailable Unavailable HUIZENGA, Roya DOSHI DO Unavailable Unavailable HUIZENGA, Roya DOSHI DO Unavailable Unavailable HUIZENGA, Roya DOSHI DO Unavailable Unavailable HUIZENGA, Roya DOSHI DO Unavailable Unavailable HUIZENGA, Roya DOSHI DO Unavailable Unavailable HUIZENGA, Roya DOSHI DO Unavailable Unavailable HUIZENGA, Roya DOSHI DO Unavailable Unavailable HUIZENGA, Roya DOSHI DO Unavailable Unavailable HUIZENGA, Roya DOSHI DO Unavailable Unavailable HUIZENGA, Roya DOSHI DO Unavailable Unavailable HUIZENGA, Roya DOSHI DO Unavailable Unavailable HUIZENGA, Roya DOSHI DO Unavailable Unavailable HUIZENGA, Roya DOSHI DO Unavailable Unavailable HUIZENGA, Roya DOSHI DO Unavailable Unavailable HUIZENGA, Roya DOSHI DO Unavailable Unavailable HUIZENGA, Roya DOSHI DO Unavailable Unavailable HUIZENGA, Roya DOSHI DO Unavailable Unavailable HUIZENGA, Roya DOSHI DO Unavailable Unavailable HUIZENGA, Roya DOSHI DO Unavailable Unavailable HUIZENGA, Roya DOSHI DO Unavailable Unavailable HUIZENGA, Roya DOSHI DO Unavailable Unavailable HUIZENGA, Roya DOSHI DO Unavailable Unavailable HUIZENGA, Roya DOSHI DO Unavailable Unavailable HUIZENGA, Roya DOSHI DO Unavailable Unavailable HUIZENGA, Roya DOSHI DO Unavailable Unavailable HUIZENGA, Roya DOSHI DO Unavailable Unavailable HUIZENGA, Roya DOSHI DO Unavailable Unavailable HUIZENGA, Roya DOSHI DO Unavailable Unavailable HUIZENGA, Roya DOSHI DO Unavailable Unavailable HUIZENGA, Roya DOSHI DO Unavailable Unavailable HUIZENGA, Roya DOSHI DO Unavailable Unavailable HUIZENGA, Roya DOSHI DO Unavailable Unavailable HUIZENGA, Roya DOSHI DO Unavailable Unavailable HUIZENGA, Roya DOSHI DO Unavailable Unavailable HUIZENGA, Roya DOSHI DO Unavailable Unavailable HUIZENGA, Roya DOSHI DO Unavailable Unavailable HUIZENGA, Roya DOSHI DO Unavailable Unavailable HUIZENGA, Roya DOSHI DO Unavailable Unavailable HUIZENGA, Roya DOSHI DO Unavailable Unavailable HUIZENGA, Roya DOSHI DO Unavailable Unavailable HUIZENGA, Roya DOSHI DO Unavailable Unavailable HUIZENGA, Roya DOSHI DO Unavailable Unavailable HUIZENGA, Roya DOSHI DO Unavailable Unavailable HUIZENGA, Roya DOSHI DO Unavailable Unavailable HUIZENGA, Roya DOSHI DO Unavailable Unavailable HUIZENGA, Roya DOSHI DO Unavailable Unavailable HUIZENGA, Roya DOSHI DO Unavailable Unavailable HUIZENGA, Roya DOSHI DO Unavailable Unavailable HUIZENGA, Roya DOSHI DO Unavailable Unavailable HUIZENGA, Roya DOHSI DO Unavailable Unavailable HUIZENGA, Roya DOSHI DO Unavailable Unavailable HUIZENGA, Roya DOSHI DO Unavailable Unavailable HUIZENGA, Roya DOSHI DO Unavailable Unavailable HUIZENGA, Roya DOSHI DO Unavailable Unavailable HUIZENGA, Roya DOSHI DO Unavailable Unavailable HUIZENGA, Roya DOSHI DO Unavailable Unavailable HUIZENGA, Roya DOSHI DO Unavailable Unavailable HUIZENGA, Roya DOSHI DO Unavailable Unavailable HUIZENGA, Roya DOSHI DO Unavailable Unavailable HUIZENGA, Roya DOSHI DO Unavailable Unavailable HUIZENGA, Roya DOSHI DO Unavailable Unavailable HUIZENGA, Roya DOSHI DO Unavailable Unavailable HUIZENGA, Roya DOSHI DO Unavailable Unavailable HUIZENGA, Roya DOSHI DO Unavailable Unavailable HUIZENGA, Roya DOSHI DO Unavailable Unavailable HUIZENGA, Roya DOSHI DO Unavailable Unavailable HUIZENGA, D TICO DO Unavailable Unavailable HUIZENGA, D TICO DO Unavailable Unavailable HUIZENGA, D TICO DO Unavailable Unavailable HUIZENGA, D TICO DO Unavailable Unavailable HUIZENGA, D TICO DO Unavailable Unavailable HUIZENGA, D TICO DO Unavailable Unavailable HUIZENGA, D TICO DO Unavailable Unavailable HUIZENGA, D TICO DO Unavailable Unavailable HUIZENGA, D TICO DO Unavailable Unavailable HUIZENGA, D TICO DO Unavailable Unavailable HUIZENGA, D TICO DO Unavailable Unavailable HUIZENGA, D TICO DO Unavailable Unavailable HUIZENGA, D TICO DO Unavailable Unavailable HUIZENGA, D TICO DO Unavailable Unavailable HUIZENGA, D TICO DO Unavailable Unavailable HUIZENGA, D TICO DO Unavailable Unavailable HUIZENGA, D TICO DO Unavailable Unavailable HUIZENGA, D TICO DO Unavailable Unavailable HUIZENGA, D TICO DO Unavailable Unavailable HUIZENGA, D TICO DO Unavailable Unavailable HUIZENGA, D TICO DO Unavailable Unavailable HUIZENGA, D TICO DO Unavailable Unavailable HUIZENGA, D TICO DO Unavailable Unavailable HUIZENGA, D TICO DO Unavailable Unavailable HUIZENGA, D TICO DO Unavailable Unavailable HUIZENGA, D TICO DO Unavailable Unavailable HUIZENGA, D TICO DO Unavailable Unavailable HUIZENGA, D TICO DO Unavailable Unavailable HUIZENGA, D TICO DO Unavailable Unavailable HUIZENGA, D TICO DO Unavailable Unavailable HUIZENGA, D TICO DO Unavailable Unavailable HUIZENGA, D TICO DO Unavailable Unavailable HUIZENGA, D TICO DO Unavailable Unavailable HUIZENGA, D TICO DO Unavailable Unavailable HUIZENGA, D TICO DO Unavailable Unavailable HUIZENGA, D TICO DO Unavailable Unavailable HUIZENGA, D TICO DO Unavailable Unavailable HUIZENGA, D TICO DO Unavailable Unavailable HUIZENGA, D TICO DO Unavailable Unavailable HUIZENGA, D TICO DO Unavailable Unavailable Wells, Blanca Unavailable Unavailable Re-disclosure Warning The records that you are about to access may contain information from federally-assisted alcohol or drug abuse programs. If such information is present, then the following federally mandated warning applies: This information has been disclosed to you from records protected by federal confidentiality rules (42 CFR part 2). The federal rules prohibit you from making any further disclosure of this information unless further disclosure is expressly permitted by the written consent of the person to whom it pertains or as otherwise permitted by 42 CFR part 2. A general authorization for the release of medical or other information is NOT sufficient for this purpose. The Federal rules restrict any use of the information to criminally investigate or prosecute any alcohol or drug abuse patient.The records that you are about to access may contain highly sensitive health information, the redisclosure of which is protected by Article 27-F of the [facility] Public Health law. If you continue you may have access to information: Regarding HIV / AIDS; Provided by facilities licensed or operated by the [facility] Office of Mental Health; or Provided by the [facility] Office for People With Developmental Disabilities. If such information is present, then the following [facility] mandated warning applies: This information has been disclosed to you from confidential records which are protected by state law. State law prohibits you from making any further disclosure of this information without the specific written consent of the person to whom it pertains, or as otherwise permitted by law. Any unauthorized further disclosure in violation of state law may result in a fine or nursing home sentence or both. A general authorization for the release of medical or other information is NOT sufficient authorization for further disc losure. Family History Family Member Name Family Member Gender Family Member Status Date o f Status Description Data Source(s) Unknown Male Problem MEDENT ([facility] ) Unknown Unknown Problem [facility] ([facility], ) Unknown Unknown Problem [facility] ([facility], ) Encounters Encounter Providers Location Date Indications Data Source(s ) [place] visit [address] [facility] [place] [address] 08/15/2021 12:00:00 AM EDT eCW1 ([facility]) Unknown [address] [facility] [place] [address] 07/17/2021 12:00:00 AM EDT eCW1 ([facility]) [facility]op visit [address] [facility] [place] [address] 06/20/2021 12:00:00 AM EDT eCW1 ([facility]) [place] [address] [facility] [place] [address] 06/20/2021 12:00:00 AM EDT eCW1 ([facility]) [place] [address] [facility] [address] [place] [address] 06/19/2021 12:00:00 AM EDT eCW1 ([facility]) [place] [address] [facility] [address] [place] [address] 06/17/2021 12:00:00 AM EDT eCW1 ([facility]) OFFICE OUTPATIENT NEW 30 MINUTES Attender: DENISE BORGES Physical Therapy 06/12/2021 10:15:00 AM EDT [facility] ([facility]) [place] [address] [facility] [place] [address] 05/29/2021 12:00:00 AM EDT eCW1 ([facility]) Outpatient Attender: Alysa CARTAGENAConsultant: [id number] 05/23/2021 11:32:00 AM EDT [facility] Outpatient Attender: Alysa Cross r: TICO HERRING DO EMERGENCY ROOM-LABOTHPROV 05/23/2021 11:23:00 AM EDT - 05/23/2021 11:23:00 AM EDT [facility] Outpatient [address] [facility] [place] [address] 05/16/2021 12:00:00 AM EDT eCW1 ([facility]) Emergency Attender: DENNIS CORTÉSeferrer : TICO HERRING DO EMERGENCY ROOM-ER 05/13/2021 05:37:00 AM EDT - 05/13/2021 08:49:00 AM EDT [facility] Patient discharged. Attender: YURI COYLE (JENNIFER RODGER) MDAttender: Blanca Padron: TICO HERRING DO 04/18/2021 08:21:06 PM EDT [facility] Attender: YURI COYLE (JENNIFER RODGER) MDAttender: Blanca SheikhReferrer: TICO SANZNGA DO 04/18/2021 08:21:06 PM EDT [facility] Attender: YURI BIRMINGHAMELIN (JENNIFER RODGER) MDAttender: Blanca AguilarReferrer: TICO NEVAEH FELIPE 04/18/2021 08:21:06 PM EDT [facility] Attender: YURI BIRMINGHAMELIN (JENNIFER RODGER) MDAttender: Blanca AguilarReferrer: TICO NEVAEH FELIPE 04/18/2021 08:21:06 PM EDT [facility] Attender: YURI BIRMINGHAMELIN (JENNIFER RODGER) MDAttender: Blanca Mauricoier: TICO NEVAEH FELIPE 04/15/2021 08:21:06 PM EDT [facility] Attender: YURI LEONIDES (JENNIFER RODGER) MDAttender: Blanca Mauricioer: TICO NEVAEH FELIPE 04/15/2021 08:21:06 PM EDT [facility] Attender: YURI LEONIDES LAU) MDReferrer: Raven HERRING DO 04/15/2021 08:21:06 PM EDT [facility] Attender: YURI LEONIDES LAU) MDReferrer: Raven HERRING DO 04/15/2021 08:21:06 PM EDT [facility] [place] [address] [facility] [place] [address] 03/10/2021 12:00:00 AM EDT eCW1 ([facility]) Medications Medication Brand Name Start Date Product Form Dose Route Admi nistrative Instructions Pharmacy Instructions Status Indications Reaction Description Data Source(s) 4 mg 08/17/2021 12:00:00 AM EDT tablet 20 TAKE ONE TABLET BY MOUTH EVERY 8 HOURS NEEDED TAKE ONE TABLET BY MOUTH EVERY 8 HOURS NEEDED SOLD: 08/19/2021 [facility] 5-325 mg 08/15/2021 12:00:00 AM EDT tablet 15 TAKE ONE TABLET BY MOUTH EVERY 6 HOURS NEEDED MAXIMUM DAILY DOSE = 4 TAKE ONE TABLET BY MOUTH EVERY 6 HOURS NEEDED MAXIMUM DAILY DOSE = 4 SOLD: 08/15/2021 [facility] Acetaminophen 325 MG / Oxycodone Hydroch loride 5 MG Oral Tablet [Percocet] Percocet 5-325 MG Percocet 5-325 MG 08/15/2021 12:00:00 AM EDT 1 .0 {tablet_as_needed} active Percocet 5-32 5 MG eCW1 ([facility]) Ondansetron 4 MG Oral Tablet [Zofran] Zofran 4 MG Zofran 4 M G 08/15/2021 12:00:00 AM EDT 1.0 {tablet} active Zo arlyn 4 MG eCW1 ([facility]) 50 mg 06/18/2021 12:00:00 AM EDT tablet 90 TAKE ONE TABLET BY MOUTH ONCE DAILY TAKE ONE TABLET BY MOUTH ONCE DAILY SOLD: 06/18/2021 [facility] 0.4 mg 06/07/2021 12:00:00 AM EDT capsule 20 TAKE ONE CAPSULE BY MOUTH EVERY DAY TAKE ONE CAPSULE BY MOUTH EVERY DAY SOLD: 06/18/2021 [facility] Tamsulosin hydrochloride 0.4 MG Oral Capsule [Flomax] Flomax 0.4 MG Flomax 0.4 MG 05/16/2021 12:00:00 AM EDT 1.0 {capsule} active Flomax 0.4 MG eCW1 ([facility]) Acetaminophen 325 MG / Oxycodone Hydroch loride 5 MG Oral Tablet [Percocet] Percocet 5-325 MG Percocet 5-325 MG 05/16/2021 12:00:00 AM EDT 1 .0 {tablet_as_needed} active Percocet 5-32 5 MG eCW1 ([facility]) Tamsulosin hydrochloride 0.4 MG Oral Capsule [Flomax] Flomax 0.4 MG Flomax 0.4 MG 05/16/2021 12:00:00 AM EDT 1.0 {capsule} active Flomax 0.4 MG eCW1 ([facility]) Acetaminophen 325 MG / Oxycodone Hydroch loride 5 MG Oral Tablet [Percocet] Percocet 5-325 MG Percocet 5-325 MG 05/16/2021 12:00:00 AM EDT 1 .0 {tablet_as_needed} active Percocet 5-32 5 MG eCW1 ([facility]) Acetaminophen 325 MG / Oxycodone Hydroch loride 5 MG Oral Tablet [Percocet] Percocet 5-325 MG Percocet 5-325 MG 05/16/2021 12:00:00 AM EDT 1 .0 {tablet_as_needed} active Percocet 5-32 5 MG eCW1 ([facility]) 0.4 mg 05/16/2021 12:00:00 AM EDT capsule 30 TAKE ONE CAPSULE BY MOUTH EVERY DAY TAKE ONE CAPSULE BY MOUTH EVERY DAY SOLD: 05/16/2021 [facility] Acetaminophen 325 MG / Oxycodone Hydroch loride 5 MG Oral Tablet [Percocet] Percocet 5-325 MG Percocet 5-325 MG 05/16/2021 12:00:00 AM EDT 1 .0 {tablet_as_needed} suspended Percocet 5- 325 MG eCW1 ([facility]) Tamsulosin hydrochloride 0.4 MG Oral Capsule [Flomax] Flomax 0.4 MG Flomax 0.4 MG 05/16/2021 12:00:00 AM EDT 1.0 {capsule} active Flomax 0.4 MG eCW1 ([facility]) Acetaminophen 325 MG / Oxycodone Hydroch loride 5 MG Oral Tablet [Percocet] Percocet 5-325 MG Percocet 5-325 MG 05/16/2021 12:00:00 AM EDT 1 .0 {tablet_as_needed} active Percocet 5-32 5 MG eCW1 ([facility]) 5-325 mg 05/16/2021 12:00:00 AM EDT tablet 28 TAKE ONE TABLET BY MOUTH EVERY 6 HOURS NEEDED MAXIMUM DAILY DOSE = 4 TABLETS TAKE ONE TABLET BY MOUTH EVERY 6 HOURS NEEDED MAXIMUM DAILY DOSE = 4 TABLETS SOLD: 05/16/2021 [facility] Acetaminophen 325 MG / Oxycodone Hydroch loride 5 MG Oral Tablet [Percocet] Percocet 5-325 MG Percocet 5-325 MG 05/16/2021 12:00:00 AM EDT 1 .0 {tablet_as_needed} active Percocet 5-32 5 MG eCW1 ([facility]) Tamsulosin hydrochloride 0.4 MG Oral Capsule [Flomax] Flomax 0.4 MG Flomax 0.4 MG 05/16/2021 12:00:00 AM EDT 1.0 {capsule} active Flomax 0.4 MG eCW1 ([facility]) Acetaminophen 325 MG / Oxycodone Hydroch loride 5 MG Oral Tablet [Percocet] Percocet 5-325 MG Percocet 5-325 MG 05/16/2021 12:00:00 AM EDT 1 .0 {tablet_as_needed} active Percocet 5-32 5 MG eCW1 ([facility]) Tamsulosin hydrochloride 0.4 MG Oral Capsule [Flomax] Flomax 0.4 MG Flomax 0.4 MG 05/16/2021 12:00:00 AM EDT 1.0 {capsule} active Flomax 0.4 MG eCW1 ([facility]) Tamsulosin hydrochloride 0.4 MG Oral Capsule [Flomax] Flomax 0.4 MG Flomax 0.4 MG 05/16/2021 12:00:00 AM EDT 1.0 {capsule} active Flomax 0.4 MG eCW1 ([facility]) Tamsulosin hydrochloride 0.4 MG Oral Capsule [Flomax] Flomax 0.4 MG Flomax 0.4 MG 05/16/2021 12:00:00 AM EDT 1.0 {capsule} active Flomax 0.4 MG eCW1 ([facility]) Tamsulosin hydrochloride 0.4 MG Oral Capsule [Flomax] Flomax 0.4 MG Flomax 0.4 MG 05/16/2021 12:00:00 AM EDT 1.0 {capsule} active Flomax 0.4 MG eCW1 ([facility]) Acetaminophen 325 MG / Oxycodone Hydroch loride 5 MG Oral Tablet [Percocet] Percocet 5-325 MG Percocet 5-325 MG 05/16/2021 12:00:00 AM EDT 1 .0 {tablet_as_needed} active Percocet 5-32 5 MG eCW1 ([facility]) Acetaminophen 325 MG / Hydrocodone Bitartrate 5 MG Ora l Tablet 5-325 mg HYDROCODONE/ACETAMINOPHEN 05/13/2021 12:00:00 AM EDT tablet 25 TAKE ONE TABLET BY MOUTH EVERY 6 HOURS NEEDED FOR PAIN FOR ACUTE PAIN MAXIMUM DAILY DOSE = 4 TAKE ONE TABLET BY MOUTH EVERY 6 HOURS A S NEEDED FOR PAIN FOR ACUTE PAIN MAXIMUM DAILY DOSE = 4 SOLD: 05/13/2021 [facility] 0.4 mg 05/13/2021 12:00:00 AM EDT capsule 7 TAKE 1 TABLET BY MOUTH ONCE DAILY TAKE 1 TABLET BY MOUTH ONCE DAILY SOLD: 05/13/2021 [facility] Citric Acid 75 MG/ML / Magnesium Oxide 2 1.9 MG/ML / picosulfate sodium 0.0625 MG/ML Oral Solution [Clenpiq] 10 mg-3.5 gram -12 gram/160 mL SOD PICOSULF/MAG OX/CITRIC AC 04/15/2021 12:00:00 AM EDT solution 320 U SE DIRECTED BY [facility] USE DIRECTED BY [facility] SOLD: 04/21/2021 [facility] 50 mg 04/09/2020 12:00:00 AM EDT tablet 90 TAKE ONE TABLET BY MOUTH ONCE A DAY TAKE ONE TABLET BY MOUTH ONCE A DAY SOLD: 02/08/2021 [facility] 50 mg 04/09/2020 12:00:00 AM EDT tablet 90 TAKE ONE TABLET BY MOUTH ONCE A DAY TAKE ONE TABLET BY MOUTH ONCE A DAY SOLD: 09/03/2020 [facility] Insurance Providers Payer name Policy type / Coverage type Policy ID Covered republican ID Covered republican's relationship to rivas Policy Rivas Plan Information [employer] [place] [id number] S YNS [id number] [employer] [employer] [place] [id number] S YND [id number] [employer] [place] [id number] S YND [id number] [facility] [id number] [facility] P[facility] POS [id number] [facility] P[facility] POS [id number] [facility] VYS [id number] VYS [id number] [place] PPO 302/307 [id number] SP [id number] Blue Cross Blue Shield P [id number] SELF [id number] Blue Cross Blue Shield P [id number] SELF [id number] [place] PPO 302/307 [id number] SP [id number] [employer] [place] [employer] PPO POS [id number] [employer] [place] [id number] S YND [id number] ANSI-Commercial [id number] ANSI-bfinance [place] [id number] ANSI-bfinance [place] [id number]-n89u-f74orrj0v6d3 ANSI-bfinance [place] [id number]-[id number]-32o0-995d-[id number] ANSI-Commercial [id number]-[id number]-w38q-[id number] ANSI-Commercial [id number]-[id number]-[id number] [id number]-wmz2-1302-cl59-6sla9k3v1412 ANSI-Commercial [id number]-[id number] c024x73m-w7ue-[id number] ANSI-Commercial [id number]-9b0z-[id number] 5b7k77t0-4g1z-7q0d-[id number] ANSI-Commercial [id number]-87p4-[id number] n038v1d9-78l4-396u-02p3-m27f1w3v5522 ANSI-Commercial 27w41g6x-4g6a-68xo-6v0h-x830m5756rmq 77v74z3q-0v8z-66wl-5c3z-m541m9593vde ANSI-Commercial [id number]-7ehc-391a14gw2uea [id number]-q980-792b-2lee-045s56mc1vzt ANSI-Commercial 05x556iy-304c-489w-j5p8-j8nht3ef2h4b 53r773vp-300d-523l-k8a7-j9jwy0jp7f3k ANSI-Commercial 44mz9r57-e7d2-3g38-1f0j-[id number] 97ug8a53-e0j7-5g64-6j8c-p084990j609y ANSI-Commercial 56616l7e-e85q-75fo-8k83-o1e56u07c0hb 64718z5d-l92h-78dh-3v85-o8h87o18l9xf ANSI-Commercial ho8d5r8v-rt9h-5835-83y0-l82d2ypsd24v ui2s4v7n-xy2z-3980-26i7-s26u8bmbm88f ANSI-Commercial 2017m206-eo49-0035-giqc-4e2i3e5uv024 0500h082-da10-0353-lvfn-0u3i4n9cl147 ANSI-Commercial 4u7x885t-[id number] 6n4w734l-8uw0-5790-2f46-238811638t3o ANSI-Commercial [id number]-19z7-0a6o-[id number] 9v98942e-33s4-3p7d-q797-71t7992010d3 ANSI-Commercial x017yc6h-5e58-6c73-9ajm-m23119qo18s3 w415bd2f-1a90-6r90-3jsb-p35955pt72e2 ANSI-bfinance [place] 55sz3gov-02kh-8425-6doq-l5exf53057xs 08ti9xlk-12hc-2993-8igm-u3inc60054mg ANSI-bfinance [place] 6315a320-214w-092y-g4m4-28c31796ex57 0726v097-750f-558s-p0j5-74r41930ht73 [employer] [place] 5m7zs750-lllj-4roz-[id number] 4i2xg173-ipfo-0ykz-mmu0-3hx74672088k [employer] [place] o0f0sad6-77e9-9169-26g4-jf9829196rr4 x0d3jkv2-61z1-1510-09i3-nx2650708wb5 [employer] [place] i1783289-8232-31qh-i4lk-2173mjp866m8 x5763105-5913-61nx-k7xm-7056ijx862i8 ANSI-bfinance [place] k7de9w10-5s97-24ky-f4mu-n28b37120ui4 u4hm0q11-5s63-70bx-v1pt-x51v35464it4 ANSI-bfinance [place] i0999r48-3fs5-4t86-ya5d-va385wjz657n e0163o96-5le9-9p15-jo9m-eo787fny393c ANSI-bfinance [place] b7c63l51-b05g-6622-8z0c-97u266fz9q00 j7z32l30-v77p-8245-0l1z-53w001dd5h74 ANSI-bfinance [place] q1g658sk-2e40-3v33-jdzp-451f61gj45i2 e0e538at-3b93-7p05-evyq-727o58cd98c8 ANSI-bfinance [place] 6504by6n-v8rh-5xgb-xy3k-n8012h5cpw59 7314zg2e-n6gv-6rko-ro9z-y8279x0czj72 ANSI-Commercial 47j8587u-7801-9k70-6z7n-22f67s6s60tz 86r4476y-4318-3u40-6g1z-83t66i7v22ab ANSI-Commercial 88u042a1-10h3-7z3n-fa0e-a24w077v2d27 86q906j2-59y7-4v5d-rd0x-l17w059r1k26 [facility] [id number] [id number] Self [id number] BS Exchange (Epo,Hmo,Ppo) Commercial [id number] [id number] Self [id number] [facility] [id number] [id number] Self [id number] BS Exchange (Epo,Hmo,Ppo) Commercial [id number] [id number] Self [id number] Blue Cross Blue Shield P need SELF need BS [facility] [id number] [id number] Self [id number] [employer] (Epo,Hmo,Ppo) Commercial [id number] [id number] Self [id number] [facility] [id number] 2.0.1.545948.3.227.99.991.606031.0 Self [id number] [employer] (Epo,Hmo,Ppo) Commercial [id number] [id number] Self [id number] [employer] BCBS B [id number] S YNS [id number] BS [place] Med[employer] Part B [id number] 2.16840.1.282946.3.227.99.991.676027.0 Self [id number] [employer] (Epo,Hmo,Ppo) Commercial [id number] [id number] Self [id number] [facility] [id number] 2.0.1.237793.3.227.99.991.724473.0 Self [id number] [employer] (Epo,Hmo,Ppo) Commercial [id number] [id number] Self [id number] BS [facility] [id number] [id number] Self [id number] [employer] (Epo,Hmo,Ppo) Commercial [id number] [id number] Self [id number] BS [place] Commercial [id number] [id number] Self [id number] [employer] BS Health Maintenance Organization (HMO) [id number] Self [id number] [employer] [place] BC [id number] S YNS [id number] [place] PPO 302/307 [id number] SP [id number] [employer] BCBS Health Maintenance Organization (HMO) [id number] Self BCBS [place] PPO 302/307 [id number] SP [id number] [place] PPO 302/307 [id number] SP [id number] BCBS HMO BLUE BC [id number] S [id number] [place] [place] PPO 302/307 [id number] SP [id number] [employer] [place] PPO 302/307 [id number] SP [id number] [place] PPO 302/307 [id number] SP [id number] [employer] BCBS P [id number] S VYS [id number] [place] PPO 302/307 [id number] SP [id number] [employer] [place] PPO 302/307 [id number] SP [id number] [place] PPO 302/307 [id number] SP [id number] [employer] BCBS B [id number] S YND [id number] [place] PPO 302/307 [id number] SP [id number] ANSI-Commercial [id number]-[id number] [id number]-k812-95d6-5510-io0k0dbm2006 ANSI-Commercial 77y699a1-0467-4x91-33ue-s34p4y6l3e6e 03p040x1-6748-1p67-79tx-x69u6o5m4c7r ANSI-Commercial [id number]-52x8-[id number] a4887h17-4x7e-43e7-[id number] ANSI-Commercial 144v46i6-[id number]-[id number] 348y11c9-c520-0149-5u82-[id number] ANSI-Commercial 50829a37-688h-30i4-349q-25tzjqp2377f 88426s78-726q-52x9-622c-01bweca6102i ANSI-Commercial [id number]-ulv7-724c-1c4i-[id number] [id number]-ixg7-218g-3w8a-[id number] ANSI-Commercial wgtxe366-pbs9-6f6a-63p6-[id number] uuezr292-dyn4-8e9v-27z4-[id number] ANSI-Commercial 3l92e77i-012g-8x5w-k437-[id number] [id number]-015p-0n3w-f282-qw0f44121v4n Problems, Conditions, and Diagnoses Code Display Name Description Problem Type Effective Dates Data Source(s) Z01.818 Encounter for other preprocedural examin ation ENCOUNTER FOR OTHER PREPROCEDURAL EXAMIN Diagnosis 05/23/2021 11:23:00 AM [facility] N20.0 Calculus of kidney CALCULUS OF KIDNEY Diagnosis 07/2021 11:23:00 AM [facility] Z79.899 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 THERAPY Diagnosis 05/13/2021 05[facility]37[facility] F17.210 Nicotine dependence, cigarettes, uncompl icated NICOTINE DEPENDENCE, CIGARETTES, UNCOMPLICATED Diagnosis 05/13/2021 05:37:00 AM [facility] N13.2 Hydronephrosis with renal and ureteral c alculous obstruction HYDRONEPHROSIS WITH RENAL AND URETERAL CALCULOUS O Diagnosis 05:37:00 AM [facility] R10.32 Left lower quadrant pain LEFT LOWER QUADRANT PAIN Diag nosis 05/13/2021 05:37:00 AM [facility] N20.0 Kidney stone Kidney stone on left side Problem 05/16/20 21 12:00:00 AM EDT eCW1 ([facility]) Surgeries/Procedures Procedure Description Date Indications Data Source(s) RADEX HAND MINIMUM 3 VIEWS 06/12/2021 12:00:00 AM EDT [facility] ([facility]) OFFICE OUTPATIENT NEW 30 MINUTES 06/12/2021 12:00:00 A M EDT [facility] ([facility]) Results ID Date Data Source [id number] 06/26/2021 08:00:00 AM EDT [facility] Name Value Range Interpretation Code Description Data Juliann rce(s) Supporting Document(s) SARS coronavirus 2 RNA [Presence] in Res piratory specimen by [facility] with probe detection NEGATIVE [facility] This lab was ordered by [facility] a nd reported by [facility]. ID Date Data Source [id number] 05/28/2021 11:00:00 AM EDT [facility] Name Value Range Interpretation Code Description Data Juliann rce(s) Supporting Document(s) EGD-Colonoscopy [facility] KWVIIo1sPnHMZgYeDGVqVcmOCVliWEssXQJfH1I3ELgkEk1EIBskniEtERLhRz0+JDTiYX8rqf3gGTXv gMy [file] cco8rEiQ35DFHXA/program instructor/GZogFOaX5UDz5IbVwFhthfR3OP53kZMAhriBmCgvNVRUYrpOFRuSulhVbZl80 [file] azcJOR/9QRTlmhtVCuAvnr0fKnmzSjl6QHF4vDQMWA3+Ice Bag Assembler/OMJs+ZyRxuDjl/eErMar5Fe3mFN972rBr [file] vLOHEFt0mlqb4BDUSSPGHXkLOCuNOQUK5EMbXuKzir +SwBXV5YetLYAhxztH7w6+4kmxgI3zXikKkWVnVynZsxOUWwFl37K62NSyRrVJpL+lD7Yixmk2bNvwc4 s30BnCEb7ZcA1qW7TWqYfJEim6maxb7xYELWQs308n2WzSG71k8FK9UnXBh9qgr+z6cPrSJrMVm+v6/w x+nR2VWYRq3Xmwl2hqv7NHyHjvJyBK82N9WgyMZyV2 sY18gdT5mTghSjpteD0aVUsPYoybczKisG04KUnLwWs2h5fkmsv2cw0AFEdTZ6v46GDztP+buitdy6Y7 lkqNCvQBvxYHO+wVh6O5tmSGXei1bI0wnHBgQ4+1CVymk9CrNNtCPTjh3f5P4DPnVzR4Y3Zp/B2PP3AN GuhHwLQ2pe5x5vgGQdAd/vX7GYVspPmcj8OmC7TT1K uJNUhDwPzMrwdHDa+YYhiTiAbuHRkGsW46ZOJYXM4Bo8nbUcMn8QK8wxYC2mZ7yXjj/eFvVqs8CeDflI Npav4e5wg1tMKT+fW9QwotXvyWR5pO4ZWkUzYhHEWjX0j7AA/BhTFpDKiPdWRJNWAXUH7q2ZQD8FVllL MT7w16V7HJ7dt5rd3JbXkLmOPvNJD1UoYl1nrmxFiq pDqcpiGO/8frIJNFI3Oc/rkzlGoTb3ST9Br0F9UnkE8MkamjEyf3CwotIcsWV5IAU7FHS7t9W6OAbbrj SujoPclh+PRINTED CIRCUIT BOARDS CONTACT PRINTER+UWQYhLb1r+xR1AA0Uv7VkLh2Bf0/kg40EbJHB9PIcSk+WFLoTl2tp+jLOaF0PnlFVMal K+ksXj5MNaJuco/CadMrK++H6QvZupUNbwS1vu/pLx bRHNKo6TyWsUrBg8UzbvkQONUIwnPjM4lSp4HHz9pBzwaBopUaM5J/1Shho/N+dnYucUteroz6eDzDCd mf+U9dLRXv/7m1a3uIMnxWkYZ0eyqLnPxPdNq5uqCJdnzbMhCefhYW737Ytwp0xD7dzcj9y/S6vfLVOp s1fLaQZ6tLHHp1/JvwBWo/fUs7vrf5d8tlay0KfJto mactFiay/7S0u/9rXzjSZUdrfPiwUbWVUV4A+4xeUHufpZz7MDNQyXrM9i6VeBNp/0cWbb5vRiRnHaDm FTn2meCqPXbzkSL1NP1eIBWUCJ2GCAsbs9klvQCOSOrc8BeFgEnV9C86qHmoLD4qem2UGY8QY1hNwvur uywr4qm2ubsm3G/Mi6/xeH+jXboL32iWoAX6UJKIpC 4eIwt53IGrqQ9/WuEMyIOYaY3lkOQLunkkVAZWIMvW5T5iTHwE5T7Gcb7tXU7xBMX/kAgfq8p6GjkZc0 LQBa2zLtHoJrde7OK/ixAVtmJxArSP1xza1IFB3Oc1WrYCLlgQQ70u0BD9LCA4pGB9v4V58DBy1nHCKV 26JTOpAyHeese87qpdd08CULy40MhzuAKi+iAd2Orn xnvfhU66TsL0h7w875kL7D+Whw7kII4iuA9FJNj8QQxj89uejqV+FZmZvk3zH+es9+ao7Fx3RRbm6uyX 8/pIzOSrYkjIsbKvctzRyL+AxA1AtmUVisGvlDSzHwemOaIntFgFOk+buoJFSYfkazu4WKctpOdMAj0p DCbh66vWL0MhONVxnJIuX15sZzY+frame pulley mortising machine operator/UbPR7yc9En+ [file] wx37Ds3p1A4iae9f+YdbITE70wmFGniZn3VG1M0E7GMhTHoXFYt0s2cUfeuTJ8aqhWW/WK6P3mQc0/group dynamics instructor [file] PAYROLL SECRETARY/wFL4aFod0jkBx4e46HQElp7vpI+Be9UUVMm04G [file] PRINTED CIRCUIT BOARDS CONTACT PRINTER/b8ixu+po6f7iRg3YNcZ8jpa1xXLmL2jWc7E/mJRtmtcI6/BNwn/ttbLPv3H0vNR4KBrGIyQMOq111 [file] [facility]+CHW2+EAiV5+xxDqRlHGN3l+OIEpMfi0ERMk+8XWtj4Z7jqP3ftkphqUb6qeh/ZjtVu2fdH/eaxXp [file] n1i7t+c4KZ9cyUoCrIqe5p0eJLPop9K8xkK6gTwoSQlb1P6G//AI/JSSUJiaECI08zAInmd6oy1bD+program instructor DqsPB6rCFMZoaWsLyxoRMHijKHbnYFQ0qRhfVV78mM f6cGUqkwzbpSD7HHQuWJR4HjTgIzGrFLi2VPuWwbx4YEoQXMvoersWyZfKV4BjL+751TwlS2CjOq/Lance [file] V4FXN+CdmVr+i+mtnPMb+Ice Bag Assembler/reYeUbDMSz55oxxC/BzZvA3xO8QtMgkCwDpsyj3i7n6k0tsBoRDIb48V [file] wIEqcYoZIT+fa1JKN4f1vAiOHBPVCka+yLR0ahpTsl5Sn4dS5FXxsPcy6YDpGO8AbdZTPo73XjFr/crab butcher [file] Pedro Pablo+GStsxF83+SVFkbaDnd1eHGx/C0HozCR2I1MJE4lGMNnP6t6vIdfd8Ft1UCsV0SpJ0jzvY6Twx4/ [file] Software Product Specialist/qaH+0wr0YxIdvDaavQ5zcO6ak7DjDSbUsT4bE77B/hXlGuxey6qBPGdsjG7ZQwKH06VgYIADcjL46 [file] OxTQ2/3ArUWBxzzdkhRzfdgLxs8cCKcFuQqPPPZk+4mAtO20Z0MUL64Cqz4fHHH8ktwbGwM5dD/program instructor/E8 [file] g1LFYJTFYLBaH9FrTLF1NSHTShHoMsAPm6AVFEJCAUYSE+BRkEPyCrYbDCZTlLQMQvI8UxBhYTIcHHIP iKYdJDFpT7VO8aZ4Tng9MfVPNyWMWhEM0ctlEeTGMp Uc4AkUebKJL2K6Y2gUXmQ1eJGIHiTvTdHNG5INKzGz9ibDCfKM3QZmttK2OzUCQhALUFRZPLVpl+BJGM eRVtE9TgZqgITa+JzTCgVHMJ9mRWXuWIHGZUrcvZO8mkKDM7xcSwpE5PENkRYFl4I4oMWvSrZUS0ubEz vT1EMO8aq2TvCJ4Tp2FssfU7pvBuICn9SFN4WgYOJwEtWO1V ID Date Data Source [id number] 05/23/2021 01:06:00 PM EDT [facility] Name Value Range Interpretation Code Description Data Juliann rce(s) Supporting Document(s) SARS coronavirus 2 RNA [Presence] in Res piratory specimen by HAMIDA with probe detection NOT DETECTED [facility] This lab was reported by [facility] [place] [facility]. ID Date Data Source [id number] 05/23/2021 12:10:[address] [facility] l FAX [phone] Name Value Range Interpretation Code Description Data Juliann rce(s) Supporting Document(s) URINE RBC 20-25 /hpf 0-3 [facility] URINE WBC 0-2 /hpf 0-5 [facility] URINE EPITHELIAL CELLS 1+ /hpf 0 [facility] URINE BACTERIA TRACE NONE SEEN [facility] ID Date Data Source [id number] 05/23/2021 12:09:[address] [facility] FAX [phone] Name Value Range Interpretation Code Description Data Juliann rce(s) Supporting Document(s) URINE COLOR. [facility] URINE APPEARANCE SLIGHTY CLOUDY [place] [facility] URINE GLUCOSE (UA) NEGATIVE mg/dL NEGATIVE [facility] URINE BILIRUBIN NEGATIVE NEGATIVE [facility] URINE KETONE NEGATIVE mg/dL [facility] SPECIFIC GRAVITY,URINE 1.025 1.005-1.030 [facility] URINE BLOOD 2+(MODERATE) NEGATIVE [facility] PH,URINE 8.5 5.0-9.0 [facility] URINE PROTEIN TRACE mg/dL NEGATIVE [facility] URINE UROBILINOGEN NORMAL(0.2-1) mg/dL 0-1 [facility] URINE NITRATE NEGATIVE NEGATIVE [facility] URINE LEUKOCYTE ESTERASE NEGATIVE NEGATIVE [facility] ID Date Data Source [id number] 05/23/2021 12:06:[address] [facility] FAX [phone] Name Value Range Interpretation Code Description Data Juliann rce(s) Supporting Document(s) GLUCOSE 94 mg/dL 74-106 [facility] BLOOD UREA NITROGEN 11 mg/dL 7-18 [facility] CREATININE 0.67 mg/dL 0.6-1.0 [facility] SODIUM 144 mmol/L 136-145 [facility] POTASSIUM 4.9 mmol/L 3.5-5.1 [facility] CHLORIDE 106 mmol/L 98-107 [facility] CO2 27 mmol/L 21-32 [facility] CALCIUM 9.4 mg/dL 8.5-10.1 [facility] ANION GAP 11.0 mmol/L 5-12 [facility] GLOMERULAR FILTRATION RATE >90 mL/min [facility] GFR IS CALCULATED IN mL/min/1.73m2 MONIQUE L FUNCTION: >90MILDLY DECREASED: 60-89MILDY TO MODERATELY DECREASED: 45-59 MODERATELY TO SEVERELY DECREASED: 30-44SEVERELY DECREASED: 15-29RENAL FAILURE: <15 ID Date Data Source [id number] 05/23/2021 11:58:00 AM EDT [facility] FAX [phone] Name Value Range Interpretation Code Description Data Juliann rce(s) Supporting Document(s) PARTIAL THROMBOPLASTIN TIME 25.0 SECONDS 21.2-27.3 [facility] ID Date Data Source [id number] 05/23/2021 11:58:00 AM [facility] FAX [phone] Name Value Range Interpretation Code Description Data Juliann rce(s) Supporting Document(s) PROTHROMBIN TIME (PATIENT) 9.7 SECONDS 9.1-11.6 [facility] INR 0.93 0.87-1.06 [facility] ID Date Data Source [id number] 05/23/2021 11:52:00 AM [facility] FAX [phone] Name Value Range Interpretation Code Description Data Juliann rce(s) Supporting Document(s) WHITE BLOOD COUNT 8.2 K/mm3 4.0-10.0 [facility] RED BLOOD COUNT 4.11 M/mm3 4.00-5.50 [facility] HEMOGLOBIN 12.4 gm/dL 12.0-16.0 [facility] HEMATOCRIT 36.3 % 36.0-48.8 [facility] MEAN CELL VOLUME 88.3 fl 80-96 [facility] MEAN CORPUSCULAR HEMOGLOBIN 30.2 pg 27.0-31.0 [facility] MEAN CORPUSCULAR HGB CONC 34.2 g/dl 32.0-36.0 [facility] RED CELL DISTRIBUTION WIDTH 13.1 % 10.0-14.5 [facility] PLATELET COUNT 428 K/mm3 172-450 [facility] ID Date Data Source [id number] 05/13/2021 09:56:00 PM EDT [facility] Patient: TIMI NORWOOD Observation Report - [facility].VisitID: [id number] [place] [address] [phone], FRegistration Date/Time: 05/13/2021 05:05 Weight:81.6 kg (S). Height/Length:65 inches (S). 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 Additional Surgeries:Bartholin cyst removal .Right toe fusion.Tubal Ligation [1997]. Medications:Zoloft Oral 50 mg, daily, last dose 05/12/2021. Allergies:No Known Drug Allergies. FAMILY HISTORYFather: Hypertension. (Electronically signed by Hilaria Yusuf 05/13/2021 21:54) Weight:81.6 kg (S). Height/Length:65 inches (S). BMI:30 (Electronically signed by Dinh Lewis PA-C 05/13/2021 13:14) Name Value Range Interpretation Code Description Data Juliann rce(s) Supporting Document(s) ID Date Data Source [id number] 05/13/2021 07:12:00 AM EDT [facility] DATE OF EXAMINATION: 05/13/2021 5:38 EDT ABD/PEL NO CONTRAST HISTORY: Left lower quadrant pain TECHNIQUE: This CT exam was performed using the following dose reduction techniques:automated exposure control, adjustment of mA and/or kV according to thepatient's size, and use of iterative reconstruction technique. Standard contiguous axial spiral imaging was obtained from the dome of thediaphragms through the symphysis pubis without oral contrast and withoutintravenous contrast administration and with coronal reformatting. COMPARISON: 02/06/2019 FINDINGS: Acute left-sided obstructive uropathy with monica atous enlargement to the leftkidney, perinephric stranding, and hydronephrosis secondary to a 9 mmobstructing calculus at the ureteropelvic junction. Calcifications within thepelvis remain relatively stable compared to prior examination and likelyrepresent phleboliths rather than more distal ureteral stones. Liver, spleen, pancreas, bilateral adrenal glands and right kidney normal.Cholelithiasis noted. The enteric system is without obstruction or acute inflammatory process. Normalterminal ileum and appendix and slight in the right lower quadrant. Scatteredcolonic/sigmoid diverticula noted without acute diverticulitis. Pelvis demonstrates normal bladder and myomatous uterus. No ascites. No free air. No adenopathy. Abdominal aorta without aneurysm.Musculoskeletal structures are intact and without acute osseous abnormality.Lung bases demonstrate trace right lower lobe atelectasis. IMPRESSION:1. Acute left-sided obstructive uropathy with a 9 mm obstructing calculus at theureteropelvic junction.2. Cholelithiasis.3. Diverticulosis without acute diverticulitis.4. Myomatous uterus. Electronically signed in PS360 by: Ryan Gomze M.D. 05/13/2021 7:06 EDT Name Value Range Interpretation Code Description Data Juliann rce(s) Supporting Document(s) ID Date Data Source [id number] 05/13/2021 06:01:[address] [facility] l TSYSORDER [id number] Name Value Range Interpretation Code Description Data Juliann rce(s) Supporting Document(s) MAGNESIUM 1.9 mg/dL 1.8-2.4 [facility] ID Date Data Source [id number] 05/13/2021 06:01:[address] [facility] l TSYSORDER [id number] Name Value Range Interpretation Code Description Data Juliann rce(s) Supporting Document(s) GLUCOSE 118 mg/dL 74-106 H [facility] BLOOD UREA NITROGEN 15 mg/dL 7-18 [facility] ital CREATININE 0.87 mg/dL 0.6-1.0 [facility] SODIUM 137 mmol/L 136-145 [facility] POTASSIUM 3.7 mmol/L 3.5-5.1 [facility] CHLORIDE 103 mmol/L 98-107 [facility] CO2 25 mmol/L 21-32 [facility] CALCIUM 8.6 mg/dL 8.5-10.1 [facility] ANION GAP 9.0 mmol/L 5-12 [facility] GLOMERULAR FILTRATION RATE 68 mL/min [facility] GFR IS CALCULATED IN mL/min/1.73m2 MONIQUE L FUNCTION: >90MILDLY DECREASED: 60-89MILDY TO MODERATELY DECREASED: 45-59 MODERATELY TO SEVERELY DECREASED: 30-44SEVERELY DECREASED: 15-29RENAL FAILURE: <15 AST 16 U/L 15-37 [facility] ALT 22 U/L 12-78 [facility] ALKALINE PHOSPHATASE 67 U/L 46-116 [facility] TOTAL BILIRUBIN 0.2 mg/dL 0.2-1.0 [facility] TOTAL PROTEIN 7.2 g/dl 6.4-8.2 [facility] ALBUMIN 3.5 gm/dL 3.4-5.0 [facility] ID Date Data Source [id number] 05/13/2021 06:01:00 AM EDT [facility] TSYSORDER [id number] Name Value Range Interpretation Code Description Data [facility] rce(s) Supporting Document(s) LIPASE 83 U/L 73-393 [facility] ID Date Data Source [id number] 05/13/2021 05:40:00 AM [facility] TSYSORDER [id number] Name Value Range Interpretation Code Description Data [facility] rce(s) Supporting Document(s) WHITE BLOOD COUNT 12.0 K/mm3 4.0-10.0 H [facility] veronica RED BLOOD COUNT 4.49 M/mm3 4.00-5.50 [facility] HEMOGLOBIN 13.6 gm/dL 12.0-16.0 [facility] HEMATOCRIT 39.6 % 36.0-48.8 [facility] MEAN CELL VOLUME 88.2 fl 80-96 [facility] MEAN CORPUSCULAR HEMOGLOBIN 30.3 pg 27.0-31.0 [facility] MEAN CORPUSCULAR HGB CONC 34.3 g/dl 32.0-36.0 [facility] RED CELL DISTRIBUTION WIDTH 13.0 % 10.0-14.5 [facility] PLATELET COUNT 443 K/mm3 172-450 [facility] MEAN PLATELET VOLUME 9.2 fl 9.0-13.0 [facility] pital GRAN % 64.3 % 50-80.0 [facility] IG% 0.1 % 0.0-0.2 [facility] LYMPH % 23.4 % 25.0-50.0 L [facility] MONO % 9.5 % 2.0-10.0 [facility] EOS % 2.2 % 0-5.0 [facility] BASO % 0.5 % 0.0-2.0 [facility] GRAN # 7.7 K/mm3 2.0-8.00 [facility] IG# 0.0 K/mm3 0.0-0.2 [facility] LYMPH # 2.8 K/mm3 1.0-5.0 [facility] MONO # 1.1 K/mm3 0.10-1.20 [facility] EOS # 0.3 K/mm3 0.0-0.5 [facility] BASO # 0.1 K/mm3 0.0-0.2 [facility] ID Date Data Source [id number] 05/13/2021 05:17:00 AM EDT [facility] TSYSORDER [id number] Name Value Range Interpretation Code Description Data Juliann rce(s) Supporting Document(s) HCG URINE NEGATIVE NEGATIVE [facility] ID Date Data Source [id number] 05/13/2021 05:22:00 AM EDT [facility] TSYSORDER [id number] Name Value Range Interpretation Code Description Data Juliann rce(s) Supporting Document(s) URINE COLOR. [facility] URINE APPEARANCE CLEAR [facility] GLUCOSE (UA) NEGATIVE mg/dL NEGATIVE [facility] URINE BILIRUBIN NEGATIVE NEGATIVE [facility] URINE KETONE NEGATIVE mg/dL NEGATIVE [facility] SPECIFIC GRAVITY,URINE >= 1.030 1.005-1.030 [facility] URINE BLOOD NEGATIVE NEGATIVE [facility] PH,URINE 5.0 5.0-9.0 [facility] URINE PROTEIN NEGATIVE mg/dL NEGATIVE [facility] URINE UROBILINOGEN NORMAL(0.2-1) mg/dL 0-1 R [facility] URINE NITRATE NEGATIVE NEGATIVE [facility] URINE LEUKOCYTE ESTERASE NEGATIVE NEGATIVE [facility] ID Date Data Source [id number] 04/15/2021 09:15:00 AM EDT [facility] Name Value Range Interpretation Code Description Data Juliann rce(s) Supporting Document(s) Follow Up [facility] YPINGn5oNbFRLeDwBIXkFutVOLfmSPboYJPpS0C2XTmnNp5NOCkorfCrCYVhFc0+IBLyDP5mlp8yYWOv gMy [file] Stonecutter+ w2zwAgdjwJ+Chela+2WIunI3pPNHCoi4GnO3FdiZZ3Xiy7jU0xNPb/54ZXk4uGEdMVmK1ir08LU2wQQT55 [file] Felipe [file] QNQf/wWC0o/Jesus Alberto+YKoJ92789CgoojiLhDZPQjgeBW [file] oXEP7CaXNFu0IuFxGlner5rzpC1JB2oYGO7tcw/6TbCpZcKKmPFH/Bean Sprout Grower/b+VbhRuPXPiCMSSoY/Kd3bn [file] +qAq1Tmums5HnIM035cVOGW+group dynamics instructor/vyUYJWlwHfJ4jNX [file] mODbVGc70ddTorB8YYiVzpexMlkL9Rz+WTeeoK2sES8yJ/7KdpLNr/utilization review specialist+JKAUo68/2A7Nplcp/YNbl9 [file] clinical [file] TRAVEL PT/VT6vitH+mbjRaKVv5rf0vBc817mB1JDU13hmsd+ 8BuPWMDn0pt7+XNdtD53qWYTLSiIW0uLp1CKd7pXfylFSQeb1jwlTaL5wU3+qfhTgb3Ab/qTP1rCEDCd A31Ok2OZdRF5oj7Zrtdfa8kliQv9d11FuPFEPLW11N37dN0WWZIJAwb9KBelh4+lwNEcPDqEws83PLSl tgzjq/6sXqrcXQ/GEl0+gbSeLqtrQiFHjIzY4RGlEG Ge5exsefEHz7Qyf86jom/5i3QZMcm32ysaIv6Mcxjs3QyMB7syTVfkNVdTDk8ZVfXNf7Mu2UEa3NtLVo swV7Lq8mKJiQMMQ0I+wivB7nwk5NmWBmwgRK1aUUUSQ8GHO3od0+YQYB1LWUvoC00Q7nrLa1llHe0/XD //pjCMDSstT+cS1RVFmPnTA2eQFLl85rJ9wAlRwDp5 iRZE9eDNvXtJmvrhyrXkVMsw7+hOfU0zpPs9WXmPqUodeIR8jvElo4PJF33pnSVgvVIUtl7J45nV1MMo eHgm7YHU+3dpbykOSkMy24yGQbVHn6oD0TjuiXUnFmJbHhKRrOBt7dCIJN6nKZP7//vv+39mjq+JzFlj 3M13xIt/q47uK5RP/9CTH5v4sfI+X080z436ZkLuIb [file] group dynamics instructor/aBRfcvLWkMnPZcpumR1KnsN3QDGZ+LBikcMf6iSYeTeDwipuSez4d/sd/31Dxyut5Pcs3Ci7PZaT0 [file] EHHdv5BY+2/ktsiWts7lAiy43vOO0bLMacYsi8X70092fZ7+vp clinical/oVNNydhtJcBDGn8okKZVlc2OPSs5Z [file] VoncMaGBXlCbHK3I Procedure Social History Code Duration Value Status Description Data Source(s ) Smoking 08/15/2021 12:00:00 AM EDT Current Smoker completed Curre nt Smoker eCW1 ([facility]) Smoking 06/20/2021 12:00:00 AM EDT Current Smoker completed Curre nt Smoker eCW1 ([facility]) Smoking 06/20/2021 12:00:00 AM EDT Current Smoker completed Curre nt Smoker eCW1 ([facility]) Smoking 06/20/2021 12:00:00 AM EDT Current Smoker completed Curre nt Smoker eCW1 ([facility]) Smoking 06/20/2021 12:00:00 AM EDT Current Smoker completed Curre nt Smoker eCW1 ([facility]) Smoking 05/28/2021 12:00:00 AM EDT Current Smoker completed Curre nt Smoker eCW1 ([facility]) Smoking 05/28/2021 12:00:00 AM EDT Current Smoker completed Curre nt Smoker eCW1 ([facility]) Smoking 05/16/2021 12:00:00 AM EDT Current Smoker completed Curre nt Smoker eCW1 ([facility]) Vital Signs ID Date Data Source UNK Name Value Range Interpretation Code Description Data Source(s) Body weight 170 [lb_av] 170 [lb_av] eCW1 ([facility]) Body weight 77.11 kg 77.11 kg eCW1 ([facility]) Body height [in_i] eCW1 ([facility]) Body mass index (BMI) [Ratio] 27.86 kg/m2 27.86 kg/m2 eCW1 ([facility]) Heart rate 80 /min 80 /min eCW1 ([facility]) Respiratory rate 18 /min 18 /min eCW1 ([facility]) Body temperature 97.6 [degF] 97.6 [degF] eCW1 ( [facility]) Systolic blood pressure 128 mm[Hg] 128 mm[Hg] e CW1 ([facility]) Diastolic blood pressure 70 mm[Hg] 70 mm[Hg] eCW1 ([facility]) Body weight 170.4 [lb_av] 170.4 [lb_av] eCW1 ([facility]) Body height [in_i] eCW1 ([facility]) Body mass index (BMI) [Ratio] 27.92 kg/m2 27.92 kg/m2 eCW1 ([facility]) Heart rate 84 /min 84 /min eCW1 ([facility]) Respiratory rate 18 /min 18 /min eCW1 ([facility]) Body temperature 97.4 [degF] 97.4 [degF] eCW1 ( [facility]) Systolic blood pressure 130 mm[Hg] 130 mm[Hg] e CW1 ([facility]) Diastolic blood pressure 72 mm[Hg] 72 mm[Hg] eCW1 ([facility]) Body weight 179.4 [lb_av] 179.4 [lb_av] eCW1 ([facility]) Body height [in_i] eCW1 ([facility]) Body mass index (BMI) [Ratio] 29.40 kg/m2 29.40 kg/m2 W1 ([facility]) Heart rate 81 /min 81 /min eCW1 ([facility]) Respiratory rate 18 /min 18 /min eCW1 ([facility]) Body temperature 97.7 [degF] 97.7 [degF] eCW1 ( [facility]) Systolic blood pressure 134 mm[Hg] 134 mm[Hg] e CW1 ([facility]) Diastolic blood pressure 74 mm[Hg] 74 mm[Hg] eCW1 ([facility]) Patient Treatment Plan of Care Planned Activity Planned Date Details Description Data Source (s) Ondansetron 4 MG Oral Tablet [Zofran] 08/15/2021 12:00:00 AM EDT eCW1 ([facility]) Acetaminophen 325 MG / Oxycodone Hydrochloride 5 MG Or al Tablet [Percocet] 08/15/2021 12:00:00 AM EDT eCW1 ([facility]) Acetaminophen 325 MG / Oxycodone Hydrochloride 5 MG Or al Tablet [Percocet] 05/16/2021 12:00:00 AM EDT eCW1 ([facility]) Tamsulosin hydrochloride 0.4 MG Oral Capsule [Flomax] 05/16/2021 12:00:00 AM EDT eCW1 ([facility]) Tamsulosin hydrochloride 0.4 MG Oral Capsule [Flomax] 05/16/2021 12:00:00 AM EDT eCW1 ([facility]) Acetaminophen 325 MG / Oxycodone Hydrochloride 5 MG Or al Tablet [Percocet] 05/16/2021 12:00:00 AM EDT eCW1 ([facility]) Tamsulosin hydrochloride 0.4 MG Oral Capsule [Flomax] 05/16/2021 12:00:00 AM EDT eCW1 ([facility]) Acetaminophen 325 MG / Oxycodone Hydrochloride 5 MG Or al Tablet [Percocet] 05/16/2021 12:00:00 AM EDT eCW1 ([facility])
--- NOTE | 2021-09-08 10:38 | REP ---
INDICATION: LEFT KIDNEY STONE. COMPARISON: 09/03/2021 as well as other prior exams. TECHNIQUE: Single view abdomen and pelvis. FINDINGS: Bowel gas pattern is normal. There is an oval calcification overlying the left sacrum likely representing a ureteral calculus 8 x 4 mm. Just lateral to that there is a rounded subcentimeter density probably representing a bone islands in the sacrum. There is a stable sclerotic focus in the left iliac bone. Multiple calcifications in the left pelvis are unchanged likely representing phleboliths. There are mild degenerative changes of the spine. IMPRESSION: Suspected oval calculus in the left ureter at the level of the sacrum 8 x 4 mm. <Electronically signed by Ronny Iqbal > 09/08/21 103
[2021-09-08] MEDS ORDERED: CONRAY-60 60% 50ML VIAL (Q9961) As Ordered ONE (13:39)
--- NOTE | 2021-09-08 15:05 | REP ---
INDICATION: CYSTO, LEFT, STENT PLACEMENT. COMPARISON: [facility]UB 09/08/2021. TECHNIQUE: Single C-arm view abdomen and pelvis. FINDINGS: A wire is seen along the course of the left ureter. IMPRESSION: 8 seconds fluoroscopy time utilized. <Electronically signed by Ronny Iqbal > 09/08/21 [id number]
--- NOTE | 2021-09-08 15:12 | ROOPDOC ---
[facility] Report Of Operation Report of Operation DATE OF PROCEDURE: 09/08/21 PREPROCEDURE DIAGNOSES: [Left ureteral stone status post ESWL x 2]. POSTPROCEDURE DIAGNOSES: [Same]. PROCEDURE PERFORMED: [cysto, fluoro, ureteroscopy with laser litho, basket stone extraction, stent placement - left side]. SURGEON: [Elvis Crawley MD BICYCLE REPAIR TECHNICIAN: [None], MD ANESTHESIA: [General]. ESTIMATED BLOOD LOSS: Approximately [minimal] mL. COMPLICATIONS: [None]. REMARKS: [51-year-old white female with left ureteral stone. ESWL x 2 without success. Ureteroscopy arranged. No guarantees given. Risks discussed including infection, bleeding, pain, scarring, failure of surgery, need for more surgery, injury to the urinary tract and others. Informed consent obtained.]. FINDINGS: SPECIMENS REMOVED: [Stone fragment] PROCEDURE NOTE: . DESCRIPTION OF PROCEDURE: [I met with the patient in the preop area and again discussed surgery. Questions answered. Patient wished to proceed. Patient brought to the OR room. General anesthesia secured without difficulty. Dorsolithotomy position. Well-padded. Prepped and draped in the usual sterile fashion. Timeout performed. Surgery done under coverage of an IV antibiotic. Rigid cystoscopy was performed. No stone in the bladder. Left ureteral orifice identified. A wire was passed up the ureter into the kidney as seen using fluoroscopy. With the wire in place as a safety wire rigid ureteroscopy was performed. A large stone was encountered in the distal ureter. Laser lithotripsy was needed. At one point I basketed a fragment but it was still too large to remove. More fragmentation was needed. Ultimately all significant fragments were removed with a basket. I advanced the ureteroscope to the UPJ at the end and no significant fragment remained. Once satisfied, a 6 [place] multilength stent was placed. The tether was left attached and taped to patient's inner thigh. A stone fragment was collected and handed off. Patient tolerated everything well left the room in satisfactory condition.]. JINA CRAWLEY MD Sep 08, 2021 15:12
[2021-09-08] MEDS ORDERED: BACTDSTA PO (15:15)
[2021-09-08] MEDS ORDERED: PYRI1TAB5 PO (15:15)
[2021-09-08] MEDS ORDERED: OXYB5TAB10 PO (15:15)
[2021-09-08] MEDS ORDERED: HYDR-3713 PO (15:15)
[2021-09-08] MEDS ORDERED: ONDANSETRON 4MG/2ML VIAL As Ordered ONE (15:22)
[2021-09-08] MEDS ORDERED: LR 1,000 ML IV SCH ×2 (15:45→15:55)
[2021-09-08] MEDS ORDERED: ONDANSETRON 4MG/2ML VIAL IV PRN (15:45)
[2021-09-08] MEDS ORDERED: fentaNYL 100 MCG/2 ML INJECTION (J3010) IV PRN (15:45)
[2021-09-08] MEDS ORDERED: oxyCODONE 5MG TAB PO PRN (15:45)
[2021-09-08 16:34] VITALS: BP 136/71
[2021-09-14 23:06] LABS: CA Oxalate Dihy 10 % (.); Ca Ox Monohydrate 90 % (.); Size 2x2 mm (.)
== END 2021-09-08 16:51 | disposition home or self-care (01) ==
LOC: M SDC 10:04
PROVIDERS: ATTEND Urology
DX: N20.1 Calculus of ureter (principal); K57.92 Diverticulitis of intestine, part unspecified, without perforation or abscess without bleeding; K21.9 Gastro-esophageal reflux disease without esophagitis; F41.9 Anxiety disorder, unspecified; R06.83 Snoring; F17.210 Nicotine dependence, cigarettes, uncomplicated; Z88.5 Allergy status to narcotic agent; Z88.8 Allergy status to other drugs, medicaments and biological substances; Z79.899 Other long term (current) drug therapy; Z79.1 Long term (current) use of non-steroidal anti-inflammatories (NSAID); Z87.442 Personal history of urinary calculi
CPT/HCPCS: 52356; 74018; 74420; 82365; 88300; C1769; C2617; J0744; J1100; J2250; J2405; Q9961

== ENCOUNTER → 2022-08-25 | Outpatient (REF) | payer BC ==
[~2022-08-25] MED LIST changes: +BACTDSTA PO; -CIPROFLOXACIN 400 MG in IV 1 EA IV ONE; +HYDR-3713 PO; -LIDOCAINE 2% 100MG/5ML SDV (FOR ANES.) As Ordered ONE; -LR 1,000 ML IV ONE; -MIDAZOLAM INJ 2MG/2ML VIAL (J2250 PER 1MG) As Ordered ONE; -ONDANSETRON 4MG/2ML VIAL As Ordered ONE; +OXYB5TAB10 PO; +PYRI1TAB5 PO; -dexameTHASONE 4 MG/ML 1ML VIAL (J1100 PER 1MG) As Ordered ONE; -propofoL 200 MG/20 ML VIAL As Ordered ONE
[2022-08-25 17:32] LABS: BASO # 0.1 10^3/uL (0.0-0.2); BASO % 1.2 % (0.0-1.0); EOS # 0.1 10^3/uL (0.0-0.5); EOS % 1.9 % (0.0-3.0); HEMATOCRIT 43.7 % (36.0-47.0); LYMPH # 2.2 10^3/uL (1.5-5.0); LYMPH % 34.3 % (24.0-44.0); MEAN CORPUSCULAR HEMOGLOBIN 28.5 pg (27.0-33.0); MONO # 0.6 10^3/uL (0.0-0.8); MONO % 9.1 % (2.0-8.0); NEUTROPHILS # 3.5 10^3/uL (1.5-8.5); NEUTROPHILS % 53.3 % (36.0-66.0); PLATELET COUNT, AUTOMATED 358 10^3/uL (150-450); RED BLOOD COUNT 4.91 10^6/uL (4.00-5.40); WHITE BLOOD COUNT 6.5 10^3/uL (4.0-10.0)
[2022-08-25 18:17] LABS: ALBUMIN 3.6 GM/DL (3.2-5.2); ALT/SGPT 21 U/L (12-78); BILIRUBIN,TOTAL 0.5 MG/DL (0.2-1.0); BLOOD UREA NITROGEN 11 MG/DL (7-18); CALCIUM LEVEL 9.2 MG/DL (8.5-10.1); CARBON DIOXIDE LEVEL 27 MEQ/L (21-32); CHLORIDE LEVEL 104 MEQ/L (98-107); CHOLESTEROL LEVEL 249 MG/DL (<200); CHOLESTEROL RISK RATIO 3.772 (<5); CREATININE FOR GFR 0.74 MG/DL (0.55-1.30); GLOMERULAR FILTRATION RATE > 60.0 (>51); GLUCOSE, FASTING 94 MG/DL (70-100); HDL CHOLESTEROL 66 MG/DL (>40); LDL CHOLESTEROL 151 MG/DL (<100); NON-HDL-C 183 MG/DL; SODIUM LEVEL 135 MEQ/L (136-145); TRIGLYCERIDES LEVEL 158 MG/DL (<150)
== END ==
LOC: M SFHCCLAY 11:32
PROVIDERS: ATTEND Family Medicine
DX: R03.0 Elevated blood-pressure reading, without diagnosis of hypertension (principal)

== ENCOUNTER → 2022-09-18 | Outpatient (REF) | payer BC | LOC: M SFHCDERM 17:42 | PROVIDERS: ATTEND Dermatology | DX: D22.5 Melanocytic nevi of trunk (principal) ==

== ENCOUNTER → 2022-12-18 | Outpatient (REF) | payer BC | LOC: M SFHCDERM 17:05 | PROVIDERS: ATTEND Nurse Practitioner Family | DX: C44.622 Squamous cell carcinoma of skin of right upper limb, including shoulder (principal) ==

== ENCOUNTER → 2023-02-02 | Outpatient (REF) | payer BC | LOC: M SFHCDERM 14:12 | PROVIDERS: ATTEND Dermatology | DX: L72.0 Epidermal cyst (principal); L90.5 Scar conditions and fibrosis of skin ==

== ENCOUNTER → 2025-03-20 | Outpatient (CLI) | payer BC, SELFPAY ==
[~2025-03-20] MED LIST changes: -FLOM0.4C39 PO; -OXYB5TAB10 PO; +OXYB5TAB14 PO; +TAMS-18 PO
== END ==
LOC: M CLY 13:38
PROVIDERS: ATTEND Family Medicine
DX: M54.12 Radiculopathy, cervical region (principal)

== ENCOUNTER → 2025-03-20 | Outpatient (CLI) | payer BC | LOC: M CLY 13:56 | PROVIDERS: ATTEND Family Medicine | DX: M54.12 Radiculopathy, cervical region (principal) ==

== ENCOUNTER → 2025-07-02 | Outpatient (CLI) | payer BC | LOC: M CLY 08:35 | PROVIDERS: ATTEND Physician Assistant | DX: M25.551 Pain in right hip (principal); M54.41 Lumbago with sciatica, right side ==